=== PATIENT | male | born 1955 | race Caucasian/White ===

== ENCOUNTER → 2016-08-13 | Outpatient (CLI) | payer BC, OTHER ==
[2016-08-13 20:47] LABS: Hemoglobin A1C 8.8 % (4.2-6.1)
== END | disposition home or self-care (01) ==
LOC: MMGSC 09:43
PROVIDERS: ATTEND Family Medicine
DX: E11.9 Type 2 diabetes mellitus without complications (principal)
CPT/HCPCS: 83036

== ENCOUNTER → 2016-08-13 | Outpatient (CLI) | payer BC, OTHER | END | disposition home or self-care (01) | LOC: MMGSC 09:41 | PROVIDERS: ATTEND Internal Medicine Endocrinology, Diabetes & Metabolism | DX: E05.20 Thyrotoxicosis with toxic multinodular goiter without thyrotoxic crisis or storm (principal) | CPT/HCPCS: 36415; 84439; 84443; 84480 ==

== ENCOUNTER → 2016-09-21 | Outpatient (CLI) | payer BC | END | disposition home or self-care (01) | LOC: LABWHC1 12:51 | PROVIDERS: ATTEND Surgery Plastic and Reconstructive Surgery | DX: E05.90 Thyrotoxicosis, unspecified without thyrotoxic crisis or storm (principal) | CPT/HCPCS: 36415; 84439; 84481 ==

== ENCOUNTER 2016-09-22 07:43 | Observation (INO) | payer BC, OTHER ==
[2016-09-16 12:15] VITALS: BMI 29.1
[~2016-09-22 07:43] MED LIST: DEXAMETHASONE SOD PHOSPHATE 10 MG/ML 1 ML VIAL IV ONE; HEPARIN SODIUM,PORCINE 5,000 UNIT/ML 1 ML VIAL SQ ONE; HYDROmorphone 1 MG/ML 1 ML SYRINGE IVP PRN; LACTATED RINGERS 1,000 ML IV SCH; MIDAZOLAM 2 MG/2 ML VIAL IV PRN; ONDANSETRON 4 MG/2 ML VIAL IVP ONE; SCOPOLAMINE 1.5MG/72HR PATCH TRANSDERM ONE
[2016-09-22] MEDS ORDERED: HEPARIN SODIUM,PORCINE 5,000 UNIT/ML 1 ML VIAL SQ ONE (08:43)
[2016-09-22] MEDS ORDERED: LIDOCAINE 1% 20 ML VIAL (10MG/ML) FOR IV START INTRADERMA ONE (08:53)
[2016-09-22] MEDS ORDERED: INSULIN LISPRO (humaLOG) 300 UNIT/3 ML VIAL SQ ONE ×2 (09:11→13:31)
[2016-09-22] MEDS ORDERED: PHENYLEPHRINE-0.9% NACL SYG 1 MG/10 ML SYRINGE ONE (09:15)
[2016-09-22] MEDS ORDERED: fentaNYL (PF) 50 MCG/ML 2 ML AMP ONE (09:15)
[2016-09-22] MEDS ORDERED: PROPOFOL 10 MG/ML 20 ML VIAL IV ONE (09:15)
[2016-09-22] MEDS ORDERED: LIDOCAINE 2% SYG (PF) 100 MG/5 ML ONE (09:15)
[2016-09-22] MEDS ORDERED: SUCCINYLCHOLINE CHLORIDE 100 MG/5 ML SYR IV ONE (09:15)
[2016-09-22] MEDS ORDERED: MIDAZOLAM 2 MG/2 ML VIAL ONE (09:15)
[2016-09-22] MEDS ORDERED: ePHEDrine 50 MG/ML 1 ML AMP ONE (09:15)
[2016-09-22] MEDS ORDERED: SODIUM CHLORIDE 0.9% 50 ML with ceFAZolin 2,000 MG IV ONE ×2 (09:22)
[2016-09-22 09:23] LABS: Glucose,Whole Blood 207 mg/dL (75-99)
[2016-09-22] MEDS ORDERED: LACTATED RINGERS 1,000 ML IV ONE ×2 (12:17→12:49)
[2016-09-22] MEDS ORDERED: ONDANSETRON 4 MG/2 ML VIAL IVP PRN (13:15)
[2016-09-22] MEDS ORDERED: NALOXONE 0.4 MG/ML 1 ML VIAL IV PRN (13:15)
--- NOTE | 2016-09-22 13:15 | P.OP ---
Date of Procedure: 09/22/16 Preoperative Diagnosis: Hyperthyroidism Postoperative Diagnosis: Hyperthyroidism, very vascular thyroid gland Procedure(s) Performed: Right thyroid lobectomy, palpation of left lobe of thyroid, biopsy inferior pole parathyroid on the right with reimplantation into the strap muscles Anesthesia: DOC Surgeon: Lisa Guzman Sales Performance Analyst #1: Shawnee Hudson Estimated Blood Loss (ml): 250 IV fluids (ml): 2,000 Pathology: other (Right lobe of thyroid, parathyroid biopsy) Condition: stable Disposition: PACU Indications for Procedure: Hyperthyroidism Operative Findings: Extremely hypervascular thyroid gland Description of Procedure: The patient is a 61-year-old gentleman with hyperthyroidism who is noted to have bilateral thyroid nodules the largest being on the right. He has a history of atrial fibrillation and is presently on Elaquis and aspirin both of which she stopped 4 days ago. Additionally he has completed a course of Lugol' s iodine. He has been on methimazole and his T3 and T4 levels are not hyperthyroid at this time. The patient presented for possible subtotal thyroidectomy. After discussion it was determined that we will proceed with a right thyroid lobectomy and possible subtotal thyroidectomy depending on the intraoperative findings and intra- operative ability to carefully identify the recurrent laryngeal nerve and parathyroid glands. The patient and his understood this and the patient was taken to the operative suite. Following induction of general anesthesia the [facility] nerve stimulator probes were placed. A Rivera catheter was placed. The neck was prepped and draped in a sterile fashion. A collar incision was made and carried down through the skin and subcutaneous tissues and through the platysma. There were noted to be enlarged veins in the subcutaneous tissue at the onset of the case. The superior and inferior skin flaps were developed using the electrocautery device. Again very large veins were noted to be present running throughout the subcutaneous tissue. The strap muscles were then in the midline using the electrocautery device. The right lobe of the thyroid was firmly adherent underneath to the area of the strap muscles. It was somewhat difficult to differentiate the tissues of the thyroid from the interdigitating area of the strap muscles. The gland was identified and it also was noted to be hypervascular. There were very large vessels running onto the surface of the gland as well as the gland itself being hypervascular. It should be noted that any retraction on the gland resulted in bleeding from the substance of the gland itself as well as the multiple vessels encasing the gland. We were able to rotate the gland somewhat medially after dividing the strap muscles using the Harmonic scalpel. The firmly adherent surrounding tissues were carefully dissected free using sharp dissection. However, any attempt to dissect tissues from the thyroid resulted in bleeding from the surrounding tissues as well as the thyroid itself. We were able to identify the inferior pole vessels these were ligated and divided. In a similar fashion the superior pole vessels were able to be identified. These were ligated and divided. However again this was somewhat difficult secondary to the hypervascularity of the gland. Following this the lobe was rotated medially again any traction on the lobe seemed to result in bleeding both from the gland as well as the surrounding tissues. We were careful to rotate the gland medially and there was believed to be area of the inferior parathyroid was identified. This was firmly adherent to the gland and encased in some surrounding tissues which was dissected free however, a of sample of this was sent for frozen section biopsy to determine if this was indeed parathyroid or not. Frozen section was consistent with parathyroid. The remaining gland was preserved for implantation in the strap muscle at the termination of the case. Continued dissection on the gland revealed the area of the superior parathyroid however, the gland itself was not well seen. As the gland was rotated medially because the superior inferior pole had been freed we approach the area of the middle thyroid vein. A very vascular plexus was present in this area very adherent to the gland and careful dissection was performed to dissect this free and ligate these vessels. Dissection in the area of the recurrent laryngeal nerve revealed the nerve running deep. This was confirmed using the name nerve stimulator. This was also surrounded by numerous thin- walled vessels which were careful to avoid injuring. The lobe was able to be rotated up onto the trachea and the lobe was divided off at the area of the ligament of Chaney. Upon dividing the lobe at the ligament of Chaney several vessels protruding into this area were identified and necessitated suture ligation. Palpation of the contralateral lobe did not reveal any discrete dominant masses. The right lobe was the one which had the larger nodules and was the one of more concern. As preoperatively discussed with the patient depending on the difficulty of intraoperative dissection and concern for preservation of the recurrent laryngeal nerve and parathyroids it was felt that we would be best to to terminate the case without doing a completion thyroidectomy. There was some concern as to the area of the entrance of the recurrent laryngeal nerve into the cricothyroid membrane due to bleeding at the ligament of Chaney. Furthermore the superior parathyroid had not been well identified and the inferior parathyroid had been removed, although preserved for reimplantation. Upon removal of the right lobe of the thyroid a suture was placed for orientation. The specimen was sent to the pathologist. The wound was well irrigated. Gelfoam and thrombin were placed over the area of the ligament of Chaney. Pressure was applied. This was again well examined and no evidence of further bleeding was noted. A [place] drain was placed. Again consideration was made for doing a completion thyroidectomy however secondary to the hypervascularity of the gland and the questionable identity of the superior parathyroid gland it was determined that it would be safest to terminate the procedure at this point and await pathology. If this reveals a cancer related to the nodularity most likely a completion thyroidectomy will be necessary. For treatment of the hyperthyroidism the patient may opt to continue on his methmazole or consider radioactive iodine. Again the largest lobe, with the largest nodules has been removed and we will await pathology. The parathyroid gland was reimplanted in the right sternocleidomastoid muscle and marked with a silk suture. The strap muscles were closed in the midline using a 3-0 Vicryl suture. The platysma was closed using a 3-0 Vicryl suture. The skin was closed using a 4-0 Monocryl. The drain was secured with a nylon suture. The patient tolerated the procedure in stable condition. All instrument and sponge counts were correct at the end of the case.
[2016-09-22 13:35] LABS: Glucose,Whole Blood 281 mg/dL (75-99)
[2016-09-22] MEDS: HEPARIN SODIUM,PORCINE 5,000 UNIT/ML 1 ML VIAL SQ SCH ×2 (16:18→23:30)
[2016-09-22] MEDS: HYDROmorphone 1 MG/ML 1 ML SYRINGE IV PRN ×2 (16:19→23:30)
[2016-09-22] MEDS: DEXTROSE 5%-0.45% NACL 1,000 ML IV SCH ×2 (16:29→23:29)
[2016-09-22 16:42] LABS: Glucose,Whole Blood 243 mg/dL (75-99)
[2016-09-22] MEDS: GLIMEPIRIDE 1 MG TAB PO SCH (17:55)
[2016-09-22] MEDS: INSULIN LISPRO (humaLOG) 300 UNIT/3 ML VIAL SQ SCH ×3 (17:55→21:15)
[2016-09-22] MEDS: METOPROLOL TARTRATE 50 MG TAB PO SCH (21:13)
[2016-09-22] MEDS: METHIMAZOLE 5 MG TAB PO SCH (21:13)
[2016-09-22 21:31] LABS: Glucose,Whole Blood 281 mg/dL (75-99)
[2016-09-23] MEDS: HYDROmorphone 1 MG/ML 1 ML SYRINGE IV PRN ×2 (02:01→07:55)
[2016-09-23 07:27] LABS: Basophils % (A) 0 %; CH 31.6; CHCM 35.2; Eosinophils % (A) 0 %; HCT 35.6 % (39.0-53.0); HDW 2.97; HGB 12.2 gm/dL (13.0-17.5); Luc % (Auto) 3; Lymphocytes # (A) 1.6 k/uL (1.0-4.8); Lymphocytes % (A) 17 %; MCHC 34.3 g/dL (31.0-37.0); MCV 90.3 fL (80.0-100.0); Mean Platelet Volume 7.9; Monocytes # (A) 0.6 k/uL (0-1.0); Monocytes % (A) 7 %; Neutrophils # (A) 6.9 k/uL (1.3-7.7); Neutrophils % (A) 73 %; RBC 3.94 m/uL (4.30-5.90); RDW 13.3 % (11.5-15.5); WBC 9.4 k/uL (3.8-10.6); WBC (Perox) 9.98
[2016-09-23] MEDS: GLIMEPIRIDE 1 MG TAB PO SCH ×2 (07:49→17:12)
[2016-09-23] MEDS: INSULIN LISPRO (humaLOG) 300 UNIT/3 ML VIAL SQ SCH ×4 (07:49→20:36)
[2016-09-23] MEDS: HEPARIN SODIUM,PORCINE 5,000 UNIT/ML 1 ML VIAL SQ SCH ×3 (07:51→23:51)
[2016-09-23] MEDS: LISINOPRIL 2.5 MG TAB PO SCH ×2 (07:52→09:08)
[2016-09-23] MEDS: METOPROLOL TARTRATE 50 MG TAB PO SCH ×2 (07:53→20:35)
[2016-09-23] MEDS: PANTOPRAZOLE 40 MG/10 ML VIAL IV SCH (07:53)
[2016-09-23] MEDS: METHIMAZOLE 5 MG TAB PO SCH ×2 (07:53→20:35)
[2016-09-23 07:57] LABS: Glucose,Whole Blood 241 mg/dL (75-99)
[2016-09-23 11:08] LABS: Hemoglobin A1C 8.5 % (4.2-6.1)
[2016-09-23 11:20] LABS: Glucose,Whole Blood 290 mg/dL (75-99)
[2016-09-23] MEDS: HYDROcodone/APAP 5-325MG 1 EACH TAB PO PRN ×2 (11:31→17:10)
--- NOTE | 2016-09-23 12:34 | P.CNEND ---
History of Present Illness Consult date: 09/23/16 Requesting physician: Lisa Guzman History of present illness: 61-year-old male who underwent right thyroid lobectomy. Patient has history of multinodular goiter and hypothyroidism. Patient is doing well postoperatively. No history of hoarseness of voice. Patient denies any numbness tingling muscle cramps. 4 hyperthyroidism patient is taking methimazole 10 mg twice a day. Preoperatively patient had normal thyroid function tests. Patient also has history of type 2 diabetes. At home he takes metformin and glimepiride. Currently he is on sliding scale insulin and glimepiride 1 mg Blood sugars are between 200-300. Patient has good appetite and is able to eat his meals. Review of Systems Constitutional: Denies chills, Denies fever Eyes: denies blurred vision, denies pain Ears, nose, mouth and throat: Reports ant. neck pain Cardiovascular: Denies chest pain, Denies shortness of breath Respiratory: Denies cough Gastrointestinal: Denies abdominal pain, Denies diarrhea, Denies nausea, Denies vomiting Musculoskeletal: Denies myalgias Integumentary: Denies pruritus, Denies rash Neurological: Denies numbness, Denies weakness Endocrine: Denies fatigue, Denies weight change Past Medical History Past Medical History: Atrial Fibrillation, Coronary Artery Disease (CAD), Diabetes Mellitus Additional Past Medical History / Comment(s): gout, 2 years ago had afib and was cardioverted.16 pt came in with weakness, feeling tired. clinical impression afib, cardiac disease. History of Any Multi-Drug Resistant Organisms: None Reported Past Surgical History: Heart Catheterization Additional Past Surgical History / Comment(s): colonoscopy/polyps removed were benign, heart cath/angioplasy(blkg lad). had appy when he was in his 20's then 5 years ago had sx to go in and removed a suture that never dissolved and clean area out. Past Anesthesia/Blood Transfusion Reactions: No Reported Reaction Past Psychological History: No Psychological Hx Reported Additional Psychological History / Comment(s): pt lives at home with his , has 2 boys and 2 girls-all grown and off on own. 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 Smoking Status: Current every day smoker Past Alcohol Use History: None Reported Additional Past Alcohol Use History / Comment(s): pt started smoking at age 15, smokes 1/2 ppd. smoking cessation booklet given to p.t Past Drug Use History: None Reported - Past Family History Father Family Medical History: Myocardial Infarction ([place]) Additional Family Medical History / Comment(s): dad at age 55 from [place] Mother Family Medical History: Cancer Additional Family Medical History / Comment(s): from bladder cancer age 88 Sister(s) Family Medical History: No Reported History Brother(s) Family Medical History: No Reported History Daughter(s) Family Medical History: No Reported History Son(s) Family Medical History: No Reported History Medications and Allergies Home Medications Medication Instructions Recorded Confirmed Type Aspirin EC [Ecotrin Low Dose] 81 mg PO DAILY 09/16/15 09/23/16 History Methimazole [Tapazole] 10 mg PO BID 09/16/16 09/23/16 History Lisinopril [Zestril] 2.5 mg PO DAILY 09/22/16 09/23/16 History Lugol's Solution 3 drop PO TID 09/22/16 09/23/16 History Allergies Allergy/AdvReac Type Severity Reaction Status Date / Time No Known Allergies Allergy Verified 09/16/15 14:29 Physical Exam Vitals: Vital Signs Temp Pulse Pulse Resp BP Pulse Ox 09/23/16 08:00 96.0 F L 62 16 101/61 95 09/23/16 02:20 97.7 F 66 16 113/59 99 09/22/16 18:30 97.5 F L 76 17 119/73 95 09/22/16 16:00 71 97/55 09/22/16 15:45 72 118/71 09/22/16 15:30 74 115/66 09/22/16 15:15 73 111/61 09/22/16 15:00 73 110/64 09/22/16 14:45 74 110/64 09/22/16 14:30 78 107/64 09/22/16 14:15 74 126/64 09/22/16 14:00 97.6 F 77 16 130/70 92 L 09/22/16 13:15 73 18 120/57 98 09/22/16 13:00 75 16 140/75 97 09/22/16 12:58 75 18 141/71 92 L 09/22/16 12:39 97.8 F 82 20 137/68 95 Intake and Output 09/22/16 09/23/16 09/23/16 22:59 06:59 14:59 Intake Total 480 850 360 Balance 480 850 360 Intake: Intake, IV Titration 700 Amount Dextrose 5%-0.45% NaCl 1, 700 000 ml @ 100 mls/hr IV . Q10H GAGANDEEP Rx#:[id number] Oral 480 150 360 Other: Voiding Method Toilet Toilet # Voids 1 - Constitutional General appearance: no acute distress - EENT Eyes: EOMI - Neck Neck: no lymphadenopathy - Respiratory Respiratory: bilateral: CTA - Cardiovascular Heart sounds: normal: S1, S2 - Gastrointestinal General gastrointestinal: no organomegaly, soft, no tenderness - Neurologic Neurologic: CNII-XII intact - Musculoskeletal Musculoskeletal: gait normal - Psychiatric Psychiatric: A&O x's 3, intact judgment & insight Results - Labs Result Diagrams: 09/23/16 06:42 Abnormal Lab Results - Last 24 Hours (Table) 09/22/16 09/22/16 09/22/16 Range/Units 13:27 16:40 21:11 RBC (4.30-5.90) m/uL Hgb (13.0-17.5) gm/dL Hct (39.0-53.0) % POC Glucose (mg/dL) 281 H 243 H 281 H (75-99) mg/dL Hemoglobin A1c (4.2-6.1) % Calcium (8.4-10.2) mg/dL 09/23/16 09/23/16 09/23/16 Range/Units 06:42 06:42 06:42 RBC 3.94 L (4.30-5.90) m/uL Hgb 12.2 L (13.0-17.5) gm/dL Hct 35.6 L (39.0-53.0) % POC Glucose (mg/dL) (75-99) mg/dL Hemoglobin A1c 8.5 H (4.2-6.1) % Calcium 8.1 L (8.4-10.2) mg/dL 09/23/16 09/23/16 Range/Units 07:35 11:17 RBC (4.30-5.90) m/uL Hgb (13.0-17.5) gm/dL Hct (39.0-53.0) % POC Glucose (mg/dL) 241 H 290 H (75-99) mg/dL Hemoglobin A1c (4.2-6.1) % Calcium (8.4-10.2) mg/dL Diabetes panel 09/22/16 09/22/16 09/23/16 Range/Units 14:15 21:52 06:42 Hemoglobin A1c 8.5 H (4.2-6.1) % Calcium 8.6 8.7 (8.4-10.2) mg/dL 09/23/16 Range/Units 06:42 Hemoglobin A1c (4.2-6.1) % Calcium 8.1 L (8.4-10.2) mg/dL Calcium panel 09/22/16 09/22/16 09/23/16 Range/Units 14:15 21:52 06:42 Calcium 8.6 8.7 8.1 L (8.4-10.2) mg/dL Pituitary panel 09/22/16 09/22/16 09/23/16 Range/Units 14:15 21:52 06:42 Calcium 8.6 8.7 8.1 L (8.4-10.2) mg/dL Adrenal panel 09/22/16 09/22/16 09/23/16 Range/Units 14:15 21:52 06:42 Calcium 8.6 8.7 8.1 L (8.4-10.2) mg/dL Assessment and Plan (1) Multiple thyroid nodules Status: Acute (2) Hyperthyroidism Status: Acute (3) Type 2 diabetes mellitus Status: Acute Plan: 61year-old male who has multi-nodular goiter as well as hyperthyroidism. He status post right lobectomy. We'll follow-up on surgical pathology as an outpatient 4 hyperthyroidism continue methimazole upon discharge and during hospitalization Postoperatively serum calcium has been normal. For diabetes, inject 6 units of Lantus now and continue Humalog sliding scale Continue glimepiride Thank you for letting me participate in the patient's care will follow patient during hospitalization as well as outpatient Follow up in endocrinology in 2 weeks after discharge
[2016-09-23] MEDS ORDERED: INSULIN GLARGINE 100 UNIT/ML 10 ML VIAL SQ ONE (13:01)
[2016-09-23] MEDS ORDERED: NICOTINE POLACRILEX 2 MG GUM BUCCAL PRN (13:26)
--- NOTE | 2016-09-23 13:29 | P.CONS ---
History of Present Illness - Reason for Consult Consult date: 09/23/16 Medical management - History of Present Illness This is a 61-year-old pleasant gentleman patient of Dr. Rodas. He has known history of diabetes mellitus, CAD with prior LAD occlusion at age 37 [address] angi[address] by [address] MICHELLE Tinoco, atrial fibrillation. Patient also has history of hyperthyroidism and was found have bilateral thyroid nodules with largest being on the right. He completed a course of Lugol's iodine and has been on methimazole. Patient was brought in to [facility] and underwent a right thyroid lobectomy, palpation of left lobe of thyroid, biopsy inferior pole parathyroid on the right with reimplantation into the strap muscles. Patient did have blood loss of 250 mL. He has a Case drain in. He denies having any difficulty or pain with swallowing. He has been seen by Dr. Acosta, automatic pinsetter adjuster. Blood sugars have been elevated between 200 300. He is anticipating discharge home tomorrow. Review of Systems All systems: negative Constitutional: Denies chills, Denies fever Eyes: denies blurred vision, denies pain Ears, nose, mouth and throat: Denies headache, Denies sore throat Cardiovascular: Denies chest pain, Denies shortness of breath Respiratory: Denies cough Gastrointestinal: Denies abdominal pain, Denies diarrhea, Denies nausea, Denies vomiting Musculoskeletal: Denies myalgias Integumentary: Denies pruritus, Denies rash Neurological: Denies numbness, Denies weakness Psychiatric: Denies anxiety, Denies depression Endocrine: Denies fatigue, Denies weight change Past Medical History Past Medical History: Atrial Fibrillation, Coronary Artery Disease (CAD), Diabetes Mellitus Additional Past Medical History / Comment(s): gout, coronary artery disease with prior LAD occlusion at age 37 requiring angioplasty, atrial fibrillation History of Any Multi-Drug Resistant Organisms: None Reported Past Surgical History: Heart Catheterization Additional Past Surgical History / Comment(s): colonoscopy/polyps removed were benign, heart cath/angioplasy(blkg lad). had appy when he was in his 20's then 5 years ago had sx to go in and removed a suture that never dissolved and clean area out. Past Anesthesia/Blood Transfusion Reactions: No Reported Reaction Past Psychological History: No Psychological Hx Reported Additional Psychological History / Comment(s): pt lives at home with his , has 2 boys and 2 girls-all grown and off on own. 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 Smoking Status: Current every day smoker Past Alcohol Use History: None Reported Additional Past Alcohol Use History / Comment(s): pt started smoking at age 15, smokes 1/2 ppd. smoking cessation booklet given to charlette Past Drug Use History: None Reported - Past Family History Father Family Medical History: Myocardial Infarction ([place]) Additional Family Medical History / Comment(s): dad at age 55 from [place] Mother Family Medical History: Cancer Additional Family Medical History / Comment(s): from bladder cancer age 88 Sister(s) Family Medical History: No Reported History Brother(s) Family Medical History: No Reported History Daughter(s) Family Medical History: No Reported History Son(s) Family Medical History: No Reported History Medications and Allergies Home Medications Medication Instructions Recorded Confirmed Type Aspirin EC [Ecotrin Low Dose] 81 mg PO DAILY 09/16/15 09/23/16 History Methimazole [Tapazole] 10 mg PO BID 09/16/16 09/23/16 History Lisinopril [Zestril] 2.5 mg PO DAILY 09/22/16 09/23/16 History Lugol's Solution 3 drop PO TID 09/22/16 09/23/16 History Allergies Allergy/AdvReac Type Severity Reaction Status Date / Time No Known Allergies Allergy Verified 09/16/15 14:29 Physical Exam Vitals: Vital Signs Temp Pulse Pulse Resp BP Pulse Ox 09/23/16 08:00 96.0 F L 62 16 101/61 95 09/23/16 02:20 97.7 F 66 16 113/59 99 09/22/16 18:30 97.5 F L 76 17 119/73 95 09/22/16 16:00 71 97/55 09/22/16 15:45 72 118/71 09/22/16 15:30 74 115/66 09/22/16 15:15 73 111/61 09/22/16 15:00 73 110/64 09/22/16 14:45 74 110/64 09/22/16 14:30 78 107/64 09/22/16 14:15 74 126/64 09/22/16 14:00 97.6 F 77 16 130/70 92 L 09/22/16 13:15 73 18 120/57 98 09/22/16 13:00 75 16 140/75 97 09/22/16 12:58 75 18 141/71 92 L 09/22/16 12:39 97.8 F 82 20 137/68 95 Intake and Output 09/22/16 09/23/16 09/23/16 22:59 06:59 14:59 Intake Total 480 850 360 Balance 480 850 360 Intake: Intake, IV Titration 700 Amount Dextrose 5%-0.45% NaCl 1, 700 000 ml @ 100 mls/hr IV . Q10H GAGANDEEP Rx#:[id number] Oral 480 150 360 Other: Voiding Method Toilet Toilet # Voids 1 Gen: This is a 61-year-old male. He is sitting up in bed appears to be in no acute distress. HEENT: Head is atraumatic, normocephalic. Pupils equal, round. Sclerae is anicteric. NECK: Supple. No JVD. No lymphadenopathy. Dressing in place with small drain. LUNGS: Clear to auscultation. No wheezes or rhonchi. No intercostal retractions. HEART: Regular rate and rhythm. No murmur. ABDOMEN: Soft. Bowel sounds are present. No masses. No tenderness. EXTREMITIES: No pedal edema. No calf tenderness. NEUROLOGICAL: Patient is awake, alert and oriented x3. Cranial nerves 2 through 12 are grossly intact. Results CBC & Chem 7: 09/23/16 06:42 Labs: Abnormal Lab Results - Last 24 Hours (Table) 09/22/16 09/22/16 09/22/16 Range/Units 13:27 16:40 21:11 RBC (4.30-5.90) m/uL Hgb (13.0-17.5) gm/dL Hct (39.0-53.0) % POC Glucose (mg/dL) 281 H 243 H 281 H (75-99) mg/dL Hemoglobin A1c (4.2-6.1) % Calcium (8.4-10.2) mg/dL 09/23/16 09/23/16 09/23/16 Range/Units 06:42 06:42 06:42 RBC 3.94 L (4.30-5.90) m/uL Hgb 12.2 L (13.0-17.5) gm/dL Hct 35.6 L (39.0-53.0) % POC Glucose (mg/dL) (75-99) mg/dL Hemoglobin A1c 8.5 H (4.2-6.1) % Calcium 8.1 L (8.4-10.2) mg/dL 09/23/16 09/23/16 Range/Units 07:35 11:17 RBC (4.30-5.90) m/uL Hgb (13.0-17.5) gm/dL Hct (39.0-53.0) % POC Glucose (mg/dL) 241 H 290 H (75-99) mg/dL Hemoglobin A1c (4.2-6.1) % Calcium (8.4-10.2) mg/dL Assessment and Plan Plan: 1. Multinodular goiter and hyperthyroidism status post right lobectomy. Pathology report is pending. Patient is to continue methimazole on discharge per automatic pinsetter adjuster. 2. Hyperthyroidism. Continue methimazole. 3. Diabetes mellitus type 2. Continue glimepiride 1 mg twice daily, Humalog scale. Dr. Acosta has ordered long acting insulin. Continue lisinopril. 4. History of coronary artery disease status post angioplasty of the LAD, stable. Continue aspirin, Lipitor, Lopressor. 5. Atrial fibrillation. Continue eliquis and Lopressor. 6. Tobacco use and dependence. Patient requesting Nicorette gum. 7. DVT and GI prophylaxis. Discharge plan: Return home tomorrow. Impression and plan of care have been directed as dictated by the signing physician. Ramonita Malhotra nurse practitioner acting as scribe for signing physician. Cc: Dr. Cesar Time with Patient: Greater than 30
[2016-09-23] MEDS: DEXTROSE 5%-0.45% NACL 1,000 ML IV SCH (13:35)
--- NOTE | 2016-09-23 15:06 | P.PN ---
Subjective A 61-year-old male patient being seen on rounds this morning. Patient is postop done on September 22 right thyroid lobectomy palpatation of left lobe of the thyroid, biopsy inferior pole parathyroid on the right with reimplantation into the strap muscles done for hyperthyroidism the dressing to the surgical site moderate amount of drainage noted on dressing with a [place] drain in place. No hoarseness noted to the voice. Patient reports no difficulty in swallowing Patient has a history of hyperthyroidism with bilateral thyroid nodules . Additionally patient does have a history of atrial fibrillation on anticoagulation elquist and aspirin. These have been stopped for 4 days prior to the surgery. Also the patient had completed a course of lugol iodine . Additionally the patient had been treated with methimazole with preop thyroid levels normalizing . Is also noted that the patient has type 2 diabetes he been on metformin and glyburide at home. Blood sugars this morning are 280. Patient has been seen by transition assistant Dr. Acosta this morning recommendations reviewed noted and appreciated Objective - Vital Signs Vital signs: Vital Signs Temp 97.0 F L 09/23/16 14:21 Pulse 58 L 09/23/16 14:21 Resp 17 09/23/16 14:21 BP 103/55 09/23/16 14:21 Pulse Ox 94 L 09/23/16 14:21 Intake & Output 09/22/16 09/23/16 09/23/16 18:59 06:59 18:59 Intake Total 3030 850 840 Output Total 1250 Balance 1780 850 840 Intake: IV 2550 Intake, IV Titration 700 Amount Dextrose 5%-0.45% NaCl 1, 700 000 ml @ 100 mls/hr IV . Q10H [facility] Rx#:[id number] Oral 480 150 840 Output: Urine 1000 Estimated Blood Loss 250 Other: Voiding Method Toilet Toilet # Voids 1 - Exam GENERAL APPEARANCE: 61-year-old patient is alert, oriented, in no acute distress. Pleasant cooperative talkative no hoarseness noted to the Danial VITAL SIGNS: Reviewed HEENT: Head is normocephalic and atraumatic. Pupils are equal and reactive. The nares are patent. Oropharynx is clear without lesions. NECK: Supple without lymphadenopathy. Traches midline. Dressing dry at surgical site with a Case drain in place HEART: S1, S2. Regular rate and rhythm. Denying a murmur LUNGS: No crackles or wheezes are heard. On room air adequate air entry ABDOMEN: Soft, nontender, nondistended with good bowel sounds. No peritoneal signs. No palpable organomegaly or masses. EXTREMITIES: Normal skin color and turgor. No cyanosis, rash, ulceration, clubbing or edema. Radial pedal pulses are 2/4 bilaterally. NEUROLOGICAL: No focal deficits. Strength and sensation are grossly intact. - Labs CBC & Chem 7: 09/23/16 06:42 Labs: Abnormal Lab Results - Last 24 Hours (Table) 09/22/16 09/22/16 09/23/16 Range/Units 16:40 21:11 06:42 RBC 3.94 L (4.30-5.90) m/uL Hgb 12.2 L (13.0-17.5) gm/dL Hct 35.6 L (39.0-53.0) % POC Glucose (mg/dL) 243 H 281 H (75-99) mg/dL Hemoglobin A1c (4.2-6.1) % Calcium (8.4-10.2) mg/dL 09/23/16 09/23/16 09/23/16 Range/Units 06:42 06:42 07:35 RBC (4.30-5.90) m/uL Hgb (13.0-17.5) gm/dL Hct (39.0-53.0) % POC Glucose (mg/dL) 241 H (75-99) mg/dL Hemoglobin A1c 8.5 H (4.2-6.1) % Calcium 8.1 L (8.4-10.2) mg/dL 09/23/16 Range/Units 11:17 RBC (4.30-5.90) m/uL Hgb (13.0-17.5) gm/dL Hct (39.0-53.0) % POC Glucose (mg/dL) 290 H (75-99) mg/dL Hemoglobin A1c (4.2-6.1) % Calcium (8.4-10.2) mg/dL Assessment and Plan Plan: Impression History of hyperthyroidism Multinodular goiter with hyperthyroidism Type 2 diabetes uncontrolled hemoglobin A1c 8.5 Status post September 22 2016 Right thyroid lobectomy, palpation of left lobe of thyroid, biopsy inferior pole parathyroid on the right with reimplantation into the strap muscles Hyperthyroidism Perivascular thyroid gland History of atrial fibrillation on elquist stopped 4 days prior Plan Continue postop surgical care Continue recommendations by endocrinology 6 units of Lantus now and follow Humalog scale Continue glyburide Further recommendations pending will follow possible discharge in the next 24 hours Initiate diabetic education The above dictated assessment and findings were discussed with dr Milla Marley Impression and the plan of care have been dictated as directed. Crystal Rico nurse practitioner acting as a scribe for Dr. Taylor
[2016-09-23 16:34] LABS: Glucose,Whole Blood 149 mg/dL (75-99)
[2016-09-23 20:16] LABS: Glucose,Whole Blood 190 mg/dL (75-99)
[2016-09-24 01:24] VITALS: RESP 16
[2016-09-24] MEDS: HYDROcodone/APAP 5-325MG 1 EACH TAB PO PRN (04:59)
[2016-09-24 06:52] LABS: Glucose,Whole Blood 166 mg/dL (75-99)
[2016-09-24 07:26] VITALS: BP 109/62; PULSE 54; TEMP 97.9
[2016-09-24] MEDS: LISINOPRIL 2.5 MG TAB PO SCH (07:33)
[2016-09-24] MEDS: HEPARIN SODIUM,PORCINE 5,000 UNIT/ML 1 ML VIAL SQ SCH (07:33)
[2016-09-24] MEDS: METHIMAZOLE 5 MG TAB PO SCH (07:33)
[2016-09-24] MEDS: GLIMEPIRIDE 1 MG TAB PO SCH (07:33)
[2016-09-24] MEDS: METOPROLOL TARTRATE 50 MG TAB PO SCH (07:33)
[2016-09-24] MEDS: INSULIN LISPRO (humaLOG) 300 UNIT/3 ML VIAL SQ SCH (07:34)
[2016-09-24] MEDS: PANTOPRAZOLE 40 MG/10 ML VIAL IV SCH (07:34)
--- NOTE | 2016-09-24 09:07 | P.DS ---
Providers Date of admission: 09/23/16 03:54 Expected date of discharge: 09/24/16 Attending physician: Lsia Guzman Consults: 09/22/16 13:18 Consult Physician Routine Consulting Provider: Gus Roach Consult Reason/Comments: Medical management Do you want consulting provider notified?: Yes 09/22/16 13:19 Consult Physician Routine Consulting Provider: Yun Acosta Consult Reason/Comments: Patient known to you Do you want consulting provider notified?: Yes Primary care physician: [facility] Course: Patient is postop done on September 22 right thyroid lobectomy palpatation of left lobe of the thyroid, biopsy inferior pole parathyroid on the right with reimplantation into the strap muscles done for hyperthyroidism the dressing to the surgical site moderate amount of drainage noted on dressing with a Ramsay drain in place. No hoarseness noted to the voice. Patient reports no difficulty in swallowing Patient has a history of hyperthyroidism with bilateral thyroid nodules . Additionally patient does have a history of atrial fibrillation on anticoagulation elquist and aspirin. These have been stopped for 4 days prior to the surgery. Also the patient had completed a course of lugol iodine . Additionally the patient had been treated with methimazole with preop thyroid levels normalizing . Is also noted that the patient has type 2 diabetes he been on metformin and glyburide at home. Blood sugars this morning are 280. Patient has been seen by domestic maid Dr. Acosta recommendations reviewed noted and appreciated on September 24 Dr. Marley evaluated the patient felt the patient was hemodynamically stable and appropriate proceed with a discharge. Dr. Marley did remove the Case drain from the surgical site. Dry dressing was applied with post op instructions provided Impression History of hyperthyroidism Multinodular goiter with hyperthyroidism Type 2 diabetes uncontrolled hemoglobin A1c 8.5 Status post September 22 2016 Right thyroid lobectomy, palpation of left lobe of thyroid, biopsy inferior pole parathyroid on the right with reimplantation into the strap muscles Hyperthyroidism Perivascular thyroid gland History of atrial fibrillation on elquist stopped 4 days prior The above dictated assessment and findings were discussed with dr Milla Marley Impression and the plan of care have been dictated as directed. Crystal Rico nurse practitioner acting as a scribe for Dr. Taylor Plan - Discharge Summary New Discharge Prescriptions: HYDROcodone/APAP 5-325MG [Stratford 5-325] 1 each PO Q4HR PRN #30 tab PRN Reason: Moderate Pain Discharge Medication List Aspirin EC [Ecotrin Low Dose] 81 mg PO DAILY 09/16/15 [History] Apixaban [Eliquis] 5 mg PO BID #60 tab 09/18/15 [Rx] Atorvastatin [Lipitor] 40 mg PO HS #30 tab 09/18/15 [Rx] Glimepiride [Amaryl] 1 mg PO BID #60 tab 09/18/15 [Rx] Metoprolol Tartrate [Lopressor] 50 mg PO BID #120 tab 09/18/15 [Rx] Methimazole [Tapazole] 10 mg PO BID 09/16/16 [History] Lisinopril [Zestril] 2.5 mg PO DAILY 09/22/16 [History] HYDROcodone/APAP 5-325MG [Stratford 5-325] 1 each PO Q4HR PRN #30 tab 09/24/16 [Rx] Follow up Appointment(s)/Referral(s): Romy Cesar MD [Primary Care Provider] - 1 Week Lisa Guzman MD [STAFF PHYSICIAN] - 1 Week Yun Acosta MD [STAFF PHYSICIAN] - 1 Week Activity/Diet/Wound Care/Special Instructions: Start gwendolyndaphnie tomorrow on September 25 Discharge Disposition: HOME SELF-CARE
== END 2016-09-24 09:37 | disposition home or self-care (01) ==
LOC: OR 07:43 → 3SUR 12:39 → OR 09-23 03:54
PROVIDERS: ADMIT Surgery; ATTEND Surgery
DX: E05.00 Thyrotoxicosis with diffuse goiter without thyrotoxic crisis or storm (principal); I48.91 Unspecified atrial fibrillation; Z79.01 Long term (current) use of anticoagulants; E11.65 Type 2 diabetes mellitus with hyperglycemia; Z79.84 Long term (current) use of oral hypoglycemic drugs; Z79.82 Long term (current) use of aspirin; I25.10 Atherosclerotic heart disease of native coronary artery without angina pectoris; F17.200 Nicotine dependence, unspecified, uncomplicated
CPT/HCPCS: 88305; 82310 ×2; 83036; 85025; 88342; 88331; 88307; 88341; 60225; 60512; G0378 ×2; J2250; J1644 ×3; J1100; J2405; J2001; J3010; J1170 ×2; J0690; J2370; J0330; J2704; C9113 ×2; 96372; 96375; 96376

== ENCOUNTER → 2016-10-01 | Outpatient (CLI) | payer BC ==
[2016-10-01 19:58] LABS: Basophils # (A) 0.1 k/uL (0-0.2); Basophils % (A) 1 %; CH 31.2; CHCM 35.2; Eosinophils # (A) 0.1 k/uL (0-0.7); Eosinophils % (A) 1 %; HCT 43.4 % (39.0-53.0); HDW 2.91; HGB 14.7 gm/dL (13.0-17.5); Luc % (Auto) 3; Lymphocytes % (A) 23 %; MCH 30.2 pg (25.0-35.0); MCHC 33.8 g/dL (31.0-37.0); MCV 89.2 fL (80.0-100.0); Mean Platelet Volume 7.3; Monocytes # (A) 0.5 k/uL (0-1.0); Monocytes % (A) 6 %; Neutrophils % (A) 66 %; RBC 4.86 m/uL (4.30-5.90); RDW 13.7 % (11.5-15.5); WBC (Perox) 9.48
[2016-10-01 20:20] LABS: ALT 38 U/L (21-72); AST 19 U/L (17-59); Alkaline Phosphatase 87 U/L (38-126); Anion Gap 12 mmol/L; Blood Urea Nitrogen 13 mg/dL (9-20); Calcium 9.4 mg/dL (8.4-10.2); Carbon Dioxide 26 mmol/L (22-30); Chloride 102 mmol/L (98-107); Glucose 90 mg/dL (74-99); Non-African American GFR(MDRD) >60 (>60 ml/min/1.73 sqM); Potassium 5.2 mmol/L (3.5-5.1); Sodium 140 mmol/L (137-145); Total Bilirubin 0.6 mg/dL (0.2-1.3); Total Protein 7.4 g/dL (6.3-8.2)
== END | disposition home or self-care (01) ==
LOC: MMGSC 15:19
PROVIDERS: ATTEND Family Medicine
DX: T81.4XXA Infection following a procedure, initial encounter (principal)
CPT/HCPCS: 36415; 80053; 84439; 84443; 84480; 85025; 87070; 87075; 87205

== ENCOUNTER 2016-10-19 10:42 | Day surgery (SDC) | payer BC ==
[2016-10-14 10:39] VITALS: BMI 29.1
[~2016-10-19 10:42] MED LIST changes: +ALPRAZolam 0.25 MG TAB PO PRN; +ASPIRIN 325 MG TAB PO ONE; -DEXAMETHASONE SOD PHOSPHATE 10 MG/ML 1 ML VIAL IV ONE; -HEPARIN SODIUM,PORCINE 5,000 UNIT/ML 1 ML VIAL SQ ONE; -HYDROmorphone 1 MG/ML 1 ML SYRINGE IVP PRN; -LACTATED RINGERS 1,000 ML IV SCH; -MIDAZOLAM 2 MG/2 ML VIAL IV PRN; -ONDANSETRON 4 MG/2 ML VIAL IVP ONE; -SCOPOLAMINE 1.5MG/72HR PATCH TRANSDERM ONE; +SODIUM CHLORIDE 0.9% 1,000 ML in EMPTY BAG 1 BAG IV ONE
[2016-10-19 11:05] VITALS: RESP 18
[2016-10-19 11:05] LABS: Glucose,Whole Blood 154 mg/dL (75-99)
[2016-10-19] MEDS ORDERED: LIDOCAINE 2% INJ 20 MG/ML (20 ML MDV) ONE (12:49)
[2016-10-19] MEDS ORDERED: VERAPAMIL 2.5 MG/ML 2 ML AMP ONE (12:49)
[2016-10-19] MEDS ORDERED: SODIUM CHLORIDE 0.9% (PF) 10 ML VIAL ONE (12:50)
[2016-10-19] MEDS ORDERED: MIDAZOLAM 2 MG/2 ML VIAL ONE (12:52)
[2016-10-19] MEDS ORDERED: HEPARIN SODIUM 1,000 UNIT/ML VIAL ONE (12:52)
[2016-10-19] MEDS ORDERED: MIDAZOLAM 2 MG/2 ML VIAL IVP ONE (13:16)
[2016-10-19] MEDS ORDERED: LIDOCAINE 2% INJ 20 MG/ML SQ ONE ×2 (13:18)
[2016-10-19] MEDS ORDERED: VERAPAMIL SYRINGE (5 MG/10 ML) INTRAARTER ONE ×2 (13:19→13:31)
[2016-10-19] MEDS ORDERED: HEPARIN SODIUM 1,000 UNIT/ML VIAL IV ONE (13:21)
[2016-10-19] MEDS ORDERED: IOHEXOL 350 MG/ML 100 ML BOTTLE INJ ONE (13:33)
[2016-10-19] MEDS ORDERED: RX INFO: IV CONTRAST WAS GIVEN 1 EACH MISC MISCELLANE PRN (13:35)
[2016-10-19] MEDS ORDERED: SODIUM CHLORIDE 0.9% 1,000 ML IV SCH (13:45)
[2016-10-19 14:49] VITALS: TEMP 98.2
[2016-10-19 15:54] VITALS: PULSE 66
[2016-10-19 17:37] VITALS: BP 134/76
--- NOTE | 2016-10-20 10:31 | CC ---
DATE OF SERVICE: 10/19/2016 PERFORMING PHYSICIAN: Mitch Cross, Print Project Manager. PROCEDURE PERFORMED: Selective right and left coronary angiogram. INDICATION: This is a pleasant 61-year-old gentleman who underwent a stress test recently in the office, showed distal lateral wall ischemia. He was brought today to undergo a heart catheterization and rule out severe underlying coronary artery disease. APPROACH: Right radial artery. COMPLICATIONS: None. LEVEL OF SEDATION: Moderate. PROCEDURE DESCRIPTION: After obtaining an informed consent, the patient was brought to the Cardiac Production Reproduction Manager. The right radial artery was accessed using micropuncture technique. The micropuncture wire passed easily, then I placed 6 Maori sheath in the right radial artery. Subsequently, I gave the patient 2 mg of verapamil IA and 3000 units of heparin IV. Then I did selective right and left coronary angiogram using JR4 and JL3.5 catheters. The procedure was completed without any complication. CORONARY ANGIOGRAM: 1. The right coronary artery is a large-caliber vessel and it is a dominant vessel. The proximal RCA appeared to be angiographically normally. The mid RCA has mild disease only. The RCA distally just before the bifurcation to PDA and PLV branch has disease, appears to be in the range of 50%. The PDA and PLV branches are angiographically normal. 2. The left main is a short left main and almost nonexistent. It bifurcates into the left circumflex and left anterior descending artery. 3. Left circumflex is a large-caliber vessel and it is a nondominant vessel. The proximal left circumflex appears to be angiographically normally. The mid left circumflex gives rise into a large OM branch, which appeared to be angiographically normal. The left circumflex after that is subtotally occluded, but becomes small to medium caliber vessel. 4. The left anterior descending artery. The proximal left anterior descending artery appeared to have disease in the range of 40% to 50%. The mid LAD has mild disease only. The LAD distally appeared to be angiographically normal. The LAD gives rises into the multiple small diagonal branches. CONCLUSION: 1. Intermediate disease involving the distal right coronary artery. 2. Intermediate disease involving the ostial left anterior descending artery. 3. Subtotally occluded small mid-left circumflex after the bifurcation of a large OM branch. POSTPROCEDURE MANAGEMENT: 1. Maximize medical treatment. 2. Follow up with the patient.
== END 2016-10-19 18:37 | disposition home or self-care (01) ==
LOC: CATHCVL 10:42
PROVIDERS: ATTEND Internal Medicine Interventional Cardiology
DX: I25.10 Atherosclerotic heart disease of native coronary artery without angina pectoris (principal); I42.9 Cardiomyopathy, unspecified; I10 Essential (primary) hypertension; E78.00 Pure hypercholesterolemia, unspecified; E11.9 Type 2 diabetes mellitus without complications; Z79.84 Long term (current) use of oral hypoglycemic drugs; F17.210 Nicotine dependence, cigarettes, uncomplicated; E78.5 Hyperlipidemia, unspecified; Z79.01 Long term (current) use of anticoagulants; Z79.82 Long term (current) use of aspirin; Z79.899 Other long term (current) drug therapy
CPT/HCPCS: 99152; 93454; C1894; J2001; J2250; Q9967; J1644

== ENCOUNTER → 2017-02-01 | Outpatient (CLI) | payer BC | END | disposition home or self-care (01) | LOC: LABWHC1 10:47 | PROVIDERS: ATTEND Internal Medicine Endocrinology, Diabetes & Metabolism | DX: E05.90 Thyrotoxicosis, unspecified without thyrotoxic crisis or storm (principal) | CPT/HCPCS: 36415; 84439; 84443 ==

== ENCOUNTER → 2017-09-30 | Outpatient (CLI) | payer BC ==
[2017-09-30 19:30] LABS: T4, Free (Free Thyroxine) 1.14 ng/dL (0.78-2.19)
== END | disposition home or self-care (01) ==
LOC: MMGSC 12:19
PROVIDERS: ATTEND Internal Medicine Endocrinology, Diabetes & Metabolism
DX: E05.90 Thyrotoxicosis, unspecified without thyrotoxic crisis or storm (principal)
CPT/HCPCS: 36415; 84439; 84443

== ENCOUNTER → 2018-05-18 | Outpatient (CLI) | payer BC ==
[2018-05-18 17:20] LABS: T4, Free (Free Thyroxine) 1.14 ng/dL (0.78-2.19)
== END | disposition home or self-care (01) ==
LOC: LABWHC1 16:05
PROVIDERS: ATTEND Internal Medicine Endocrinology, Diabetes & Metabolism
DX: E05.90 Thyrotoxicosis, unspecified without thyrotoxic crisis or storm (principal)
CPT/HCPCS: 36415; 84439; 84443

== ENCOUNTER → 2018-05-20 | Outpatient (CLI) | payer BC ==
--- NOTE | 2018-05-20 18:17 | US ---
EXAMINATION TYPE: US thyroid st tissue head/neck DATE OF EXAM: 05/20/2018 COMPARISON: US and NM 09/17/2015 CLINICAL HISTORY: E05.90 Thyrotoxicosis. F/U, pt had right thyroid gland removed since previous exam GLAND SIZE: Right Lobe: Surgically absent Left Lobe: 5.8 x 1.9 x 2.0 cm Overall Parenchyma: heterogeneous Isthmus Thickness: 0.3 cm NODULES LEFT: # of nodules measured on left: 3 1. 1.3 X 1.1 x 1.1 cm hypoechoic solid nodule at the mid pole with well-defined margins; This nodul e is taller than wide and shows intranodular vascularity. Prior size: 1.4 x 1.3 x 1.1 cm 2. 1.1 X 0.8 x 1.0 cm hypoechoic solid nodule at the lower pole with well-defined margins; This nod ule is wider than tall and shows intranodular vascularity. Prior size: 1.2 x 0.8 x 1.0 cm 3. 1.1 X 0.5 x 0.9 cm isoechoic solid nodule at the lower pole with well-defined margins; This nodul e is wider than tall and shows intranodular vascularity. Prior size: 1.3 x 0.6 x 0.9 cm Bilateral neck scanned, no evidence of lymphadenopathy. Right lobe surgically absent, calcifications present within right thyroid bed, largest= 0.8 x 0.3 x 0.9 cm/ Left thyroid heterogeneous with stable nodules measured, all other nodules sub-centimeter in size. IMPRESSION: Calcification at the site of right thyroid lobectomy. No adverse change compared to old exam. Numerou s left side thyroid nodules consistent with multinodular goiter.
== END | disposition home or self-care (01) ==
LOC: RADUSMAIN 17:34
PROVIDERS: ATTEND Internal Medicine Endocrinology, Diabetes & Metabolism
DX: E05.20 Thyrotoxicosis with toxic multinodular goiter without thyrotoxic crisis or storm (principal)
CPT/HCPCS: 76536

== ENCOUNTER → 2018-11-23 | Outpatient (CLI) | payer BC ==
[2018-11-23 16:33] LABS: Albumin 4.3 g/dL (3.80-4.90); Albumin/Globulin Ratio 2.53 (1.60-3.17); Anion Gap 6.6 mmol/L (4.00-12.00); Calcium 8.9 mg/dL (8.7-10.3); Carbon Dioxide 27.4 mmol/L (21.6-31.8); Globulin 1.7 g/dL (1.6-3.3); LDL Cholesterol,Calculated 117.6 mg/dL (0.0-131.0); Potassium 4.6 mmol/L (3.5-5.5); Total Bilirubin 0.4 mg/dL (0.2-1.2); VLDL Calculation 19.4 mg/dL (5.00-40.00)
[2018-11-23 16:40] LABS: T4, Free (Free Thyroxine) 1.2 ng/dL (0.80-1.80)
[2018-11-23 20:40] LABS: Hemoglobin A1C 12.3 % (4.0-6.0)
== END | disposition home or self-care (01) ==
LOC: LABWHC1 07:29
PROVIDERS: ATTEND Internal Medicine Endocrinology, Diabetes & Metabolism
DX: E11.65 Type 2 diabetes mellitus with hyperglycemia (principal); E04.2 Nontoxic multinodular goiter
CPT/HCPCS: 36415; 80053; 80061; 82043; 82570; 83036; 84439; 84443

== ENCOUNTER → 2019-04-14 | Outpatient (CLI) | payer BC ==
[2019-04-14 23:24] LABS: African American GFR (CKD) 74.7 (60.0-200.0); Albumin 4.2 g/dL (3.80-4.90); Albumin/Globulin Ratio 2.33 (1.60-3.17); Anion Gap 7.1 mmol/L (4.00-12.00); BUN/Creat Ratio 12.5 Ratio (12.00-20.00); Calcium 8.8 mg/dL (8.7-10.3); Carbon Dioxide 26.9 mmol/L (21.6-31.8); Chol/HDL Ratio 4.09; Globulin 1.8 g/dL (1.6-3.3); LDL Cholesterol,Calculated 125.2 mg/dL (0.0-131.0); Non-African American GFR(CKD) 64.4 (60.0-200.0); Potassium 4.1 mmol/L (3.5-5.5); Total Bilirubin 0.7 mg/dL (0.3-1.2); VLDL Calculation 13.8 mg/dL (5.00-40.00)
[2019-04-14 23:32] LABS: T4, Free (Free Thyroxine) 1.2 ng/dL (0.80-1.80)
[2019-04-14 23:50] LABS: Urine Creatinine 168.2 mg/dL
[2019-04-15 00:09] LABS: Hemoglobin A1C 11.6 % (4.0-6.0)
== END | disposition home or self-care (01) ==
LOC: LABWHC1 17:09
PROVIDERS: ATTEND Internal Medicine Endocrinology, Diabetes & Metabolism
DX: E04.2 Nontoxic multinodular goiter (principal); E11.65 Type 2 diabetes mellitus with hyperglycemia
CPT/HCPCS: 36415; 80053; 80061; 82043; 82570; 83036; 84439; 84443

== ENCOUNTER 2019-11-02 17:15 | Inpatient (IN) | payer BC ==
[2019-11-02] MEDS ORDERED: MORPHINE SULFATE 4 MG/ML SYRINGE IV PRN (17:38)
[2019-11-02] MEDS ORDERED: HEPARIN SODIUM,PORCINE 5,000 UNIT/ML 1 ML VIAL IV PRN (17:38)
[2019-11-02] MEDS ORDERED: NITROGLYCERIN SL TABS 0.4 MG TAB SUBLINGUAL PRN ×2 (17:38→19:07)
[2019-11-02] MEDS ORDERED: ASPIRIN 81 MG PO STA (17:38)
[2019-11-02] MEDS ORDERED: SODIUM CHLORIDE 0.9% 1,000 ML IV STA (17:38)
[2019-11-02] MEDS ORDERED: HEPARIN SODIUM,PORCINE 5,000 UNIT/ML 1 ML VIAL IV ONE (17:38)
[2019-11-02] MEDS ORDERED: LABETALOL 5 MG/ML VIAL MDV IVP STA (17:41)
[2019-11-02 17:45] LABS: Basophils # (A) 0.1 k/uL (0-0.2); Basophils % (A) 1 %; Eosinophils # (A) 0.1 k/uL (0-0.7); Eosinophils % (A) 1 %; HGB 16.4 gm/dL (13.0-17.5); Lymphocytes # (A) 1.9 k/uL (1.0-4.8); Lymphocytes % (A) 14 %; MCH 30.9 pg (25.0-35.0); MCV 88.4 fL (80.0-100.0); Mean Platelet Volume 8.3; Monocytes # (A) 0.6 k/uL (0-1.0); Monocytes % (A) 5 %; Neutrophils # (A) 10.4 k/uL (1.3-7.7); Neutrophils % (A) 78 %; Platelet Count 236 k/uL (150-450); RBC 5.31 m/uL (4.30-5.90); RDW 12.3 % (11.5-15.5); WBC 13.4 k/uL (3.8-10.6)
[2019-11-02] MEDS ORDERED: HEPARIN SOD,PORK IN 0.45% NACL 25,000 UNIT in 0.45% NACL 1 250ML.BAG IV SCH (17:45)
--- NOTE | 2019-11-02 17:47 | ED ---
Chest Pain HPI - General Chief Complaint: Chest Pain Stated Complaint: chest pain Time Seen by Provider: 11/02/19 17:27 Source: patient, RN notes reviewed, old records reviewed Limitations: no limitations - History of Present Illness Initial Comments: This is a 64-year-old male DF for evaluation of chest pain 2 hours prior to arrival today. Patient is stabbing burning chest pain which it was related to reflux but it did not go away. Patient has history of angioplastystents, diabetes smoker with no significant family history of heart disease. Patient nursing travel history sick contacts no fever cough or congestion is otherwise been feeling well until this afternoon. Patient presents with his who drove him to the hospital tonight. Patient denying shortness of breath and diaphoresis still having chest pain is substernal minimal heaviness MD Complaint: chest pain -: hour(s) (2) Pain Location: substernal Pain Radiation: none Severity: mild Severity scale (1-10): 3 Quality: tightness Consistency: constant Improves With: nothing Worsens With: nothing Context: other (none) Anginal Symptoms: other (none) Other Symptoms: other (none) Treatments Prior to Arrival: none - Related Data Home Medications Medication Instructions Recorded Confirmed metFORMIN HCL 1,000 mg PO BID 11/02/19 11/02/19 Allergies Allergy/AdvReac Type Severity Reaction Status Date / Time No Known Allergies Allergy Verified 11/02/19 17:58 Review of Systems ROS Statement: Those systems with pertinent positive or pertinent negative responses have been documented in the HPI. ROS Other: All systems not noted in ROS Statement are negative. EKG Findings - EKG Comments: EKG Findings:: EKG shows evidence of ST elevated AR inferiorly with a rate of 84, VA 212, QRS 114, QTc 453 Past Medical History Past Medical History: Atrial Fibrillation, Coronary Artery Disease (CAD), Diabetes Mellitus, Thyroid Disorder Additional Past Medical History / Comment(s): gout, coronary artery disease with prior LAD occlusion at age 37 requiring angioplasty, History of Any Multi-Drug Resistant Organisms: None Reported Past Surgical History: Appendectomy, Heart Catheterization, Heart Catheterization With Stent Additional Past Surgical History / Comment(s): colonoscopy/polyps removed were benign, heart cath/angioplasy(blkg lad). had appy when he was in his 20's then 5 years ago had sx to go in and removed a suture that never dissolved and clean area out. 09/23/16-RT THYROID LOBECTOMY AND PARATHYROID BX Past Anesthesia/Blood Transfusion Reactions: No Reported Reaction Date of Last Stent Placement:: AGE 37 Past Psychological History: No Psychological Hx Reported Smoking Status: Current every day smoker Past Alcohol Use History: None Reported Past Drug Use History: None Reported - Past Family History Father Family Medical History: Myocardial Infarction (AR) Additional Family Medical History / Comment(s): dad at age 55 from [place] Mother Family Medical History: Cancer Additional Family Medical History / Comment(s): from bladder cancer age 88 Sister(s) Family Medical History: No Reported History Brother(s) Family Medical History: No Reported History Daughter(s) Family Medical History: No Reported History Son(s) Family Medical History: No Reported History General Exam Limitations: no limitations General appearance: alert, in no apparent distress, anxious Head exam: Present: atraumatic, normocephalic, normal inspection Eye exam: Present: normal appearance, PERRL, EOMI. Absent: scleral icterus, conjunctival injection, periorbital swelling ENT exam: Present: normal exam, mucous membranes moist Neck exam: Present: normal inspection. Absent: tenderness, meningismus, lymphadenopathy Respiratory exam: Present: normal lung sounds bilaterally. Absent: respiratory distress, wheezes, rales, rhonchi, stridor Cardiovascular Exam: Present: regular rate, normal rhythm, normal heart sounds. Absent: systolic murmur, diastolic murmur, rubs, gallop, clicks GI/Abdominal exam: Present: soft, normal bowel sounds. Absent: distended, tenderness, guarding, rebound, rigid Extremities exam: Present: normal inspection, full ROM, normal capillary refill. Absent: tenderness, pedal edema, joint swelling, calf tenderness Back exam: Present: normal inspection Neurological exam: Present: alert, oriented X3, CN II-XII intact Psychiatric exam: Present: normal affect, normal mood Skin exam: Present: warm, dry, intact, normal color. Absent: rash Course Vital Signs 11/02/19 11/02/19 11/02/19 17:19 17:35 17:45 Temperature 97.6 F Pulse Rate 82 80 Respiratory 20 18 Rate Blood Pressure 189/95 185/97 185/97 O2 Sat by Pulse 99 100 Oximetry 04/02/20 18:02 Temperature Pulse Rate 77 Respiratory 18 Rate Blood Pressure 160/95 O2 Sat by Pulse 99 Oximetry - Reevaluation(s) Reevaluation #1: 11/02/19 18:25 medical records reviewed Reevaluation #2: 11/02/19 18:25 Patient is improved blood pressure controlsignificant current pain Reevaluation #3: 11/02/19 18:26 Studies Chest x-ray is negative for acute disease - Consultations Consultation #1: spoke w cardiology environmental law professor physician, Dr. Lee will take patient to the [facility] Lab and sound Dr. Toussaint is aware of admission Chest Pain MDM - MDM 64 male who presented with acute chest pain chart prior to arrival history of angioplasty diabetes and smoker blood pressure elevated here improve with treatment, patient's in no acute distress minimal chest pain no diaphoresis or shortness of breath EKG is positive for ST elevated AR patient to be admitted and anticoagulation took aspirin prior to arrival. Patient going to the Video Games Mechanic Critical Care Time Critical Care Time: Yes Total Critical Care Time: 31 Disposition Clinical Impression: A-fib, Type 2 diabetes mellitus, Cardiac disease, ST elevation myocardial infarction (STEMI) Disposition: ADMITTED IP TO THIS HOSP Condition: Serious Is patient prescribed a controlled substance at d/c from ED?: No
--- NOTE | 2019-11-02 17:51 | XR ---
EXAMINATION TYPE: XR chest 1V portable DATE OF EXAM: 11/02/2019 HISTORY: Shortness of breath. COMPARISON: 09/16/2015 TECHNIQUE: Single view of the chest is submitted. FINDINGS: Demonstrated are scattered senescent parenchymal change. There is no evidence for focal infiltrate. The heart is stable. Hilar and mediastinal structures are within normal limits. Degenerative changes are seen of the dorsal spine. IMPRESSION: 1. Chronic changes without evidence for acute pulmonary disease.
[2019-11-02 17:53] LABS: INR 0.9 (<1.2); Partial Thromboplastin Time 24.9 sec (22.0-30.0); Prothrombin Time 9.4 sec (9.0-12.0)
[2019-11-02 17:54] LABS: ALT 21 U/L (4-49); AST 23 U/L (17-59); African American GFR (CKD) >90 (>60 ml/min/1.73 sqM); Albumin 4.5 g/dL (3.5-5.0); Alkaline Phosphatase 99 U/L (38-126); Anion Gap 10 mmol/L; Blood Urea Nitrogen 16 mg/dL (9-20); Calcium 9.6 mg/dL (8.4-10.2); Carbon Dioxide 25 mmol/L (22-30); Chloride 100 mmol/L (98-107); Glucose 348 mg/dL (74-99); Non-African American GFR(CKD) 85 (>60 ml/min/1.73 sqM); Potassium 4.1 mmol/L (3.5-5.1); Sodium 135 mmol/L (137-145); Total Bilirubin 0.5 mg/dL (0.2-1.3); Total Protein 7.2 g/dL (6.3-8.2)
[2019-11-02] MEDS ORDERED: LABETALOL SYRINGE 5 MG/ML IV ONE (18:00)
[2019-11-02] MEDS ORDERED: IV FLUID CONTINUATION 1,000 ML IV ONE ×2 (18:08)
[2019-11-02] MEDS ORDERED: LIDOCAINE 1% INJ 10MG/ML (20 ML MDV) ONE (18:17)
[2019-11-02] MEDS ORDERED: VERAPAMIL 2.5 MG/ML 2 ML AMP ONE (18:17)
[2019-11-02] MEDS ORDERED: MIDAZOLAM 2 MG/2 ML VIAL IVP ONE (18:24)
[2019-11-02] MEDS ORDERED: LIDOCAINE 1% INJ 10MG/ML (20 ML MDV) SQ ONE (18:26)
[2019-11-02] MEDS ORDERED: hydrALAZINE HCL 20 MG/ML 1 ML VIAL ONE (18:27)
[2019-11-02] MEDS ORDERED: hydrALAZINE HCL 20 MG/ML 1 ML VIAL IVP ONE (18:28)
[2019-11-02 18:29] LABS: Troponin I 0.043 ng/mL (0.000-0.034)
[2019-11-02] MEDS ORDERED: BIVALIRUDIN BOLUS 250 MG/50 ML IV ONE (18:33)
[2019-11-02] MEDS ORDERED: PRASUGREL 10 MG TAB ONE (18:33)
[2019-11-02] MEDS ORDERED: BIVALIRUDIN 250 MG in SODIUM CHLORIDE 0.9% 50 ML IV ONE (18:34)
[2019-11-02] MEDS ORDERED: NITROGLYCERIN 1000MCG/10ML SYRINGE INTRACORON ONE (18:42)
[2019-11-02] MEDS: NITROGLYCERIN 1000MCG/10ML SYRINGE INTRACORON ONE ×2 (18:42→18:48)
[2019-11-02] MEDS ORDERED: MORPHINE SULFATE 4 MG/ML SYRINGE ONE (18:43)
[2019-11-02] MEDS ORDERED: HYDROmorphone 1 MG/ML 1 ML SYRINGE ONE (18:43)
[2019-11-02] MEDS ORDERED: MORPHINE SULFATE 4 MG/ML SYRINGE IVP ONE (18:44)
[2019-11-02] MEDS ORDERED: FUROSEMIDE 10 MG/ML 4 ML VIAL ONE (18:45)
[2019-11-02] MEDS ORDERED: FUROSEMIDE 10 MG/ML 4 ML VIAL IVP ONE (18:46)
[2019-11-02] MEDS ORDERED: niCARdipine Syringe (1,000 mcg/10 mL) INTRACORON ONE (18:48)
[2019-11-02] MEDS ORDERED: PRASUGREL 10 MG TAB PO ONE (18:55)
[2019-11-02] MEDS ORDERED: IOPAMIDOL-370 125ML BTL INJ ONE (19:02)
[2019-11-02] MEDS ORDERED: ATROPINE SULFATE 0.1 MG/ML 10ML SYRINGE IV PRN (19:07)
[2019-11-02] MEDS ORDERED: ZOLPIDEM 5 MG TAB PO PRN (19:07)
[2019-11-02] MEDS ORDERED: RX INFO: IV CONTRAST WAS GIVEN 1 EACH MISC MISCELLANE PRN (19:07)
[2019-11-02] MEDS ORDERED: MAG HYDROX/AL HYDROX/SIMETH 30 ML CUP PO PRN (19:07)
[2019-11-02] MEDS ORDERED: SODIUM CHLORIDE 0.9% 1,000 ML IV SCH (19:15)
--- NOTE | 2019-11-02 19:24 | P.PCN ---
Date of Procedure: 11/02/19 Operative Findings: CARDIAC CATHETERIZATION AND PERCUTANEOUS CORONARY INTERVENTION PERFORMING PHYSICIAN: Mitch Arellano MD, RPVI PROCEDURE PERFORMED: 1. Selective right and left coronary angiogram 2. Left heart catheterization 3. Successful stenting of the distal RCA using 3.0 x 18 mm Xience KAUSHIK with an excellent angiographic results and reduction of stenosis from 100% to 0% INDICATION: This is a very pleasant 64-year-old gentleman with coronary artery disease and prior angioplasty of the LAD as well as hypertension and dyslipidemia presented to the emergency room complaining of chest discomfort and was found to have an acute inferior ST patient myocardial infarction. Because of that an emergent heart catheterization was advised COMPLICATION: None APPROACH: Right common femoral artery LEVEL OF SEDATION: Moderate with sedation length of 40 minutes DOOR TO BALLOON; 53 minutes PROCEDURE DESCRIPTION: After obtaining an informed consent, the patient was brought to cardiac lab coordinator. Local anesthesia was performed using lidocaine subcutaneously. The right common femoral artery was cannulated using Seldinger technique, the guidewire passed easily, following that we advanced a 6 Azerbaijani sheath dilator assembly, the wire and dilator were removed and sheath was flushed. Selective right and left coronary angiogram using a 6-Azerbaijani JR4 and JL catheters. Subsequently I did intervene on the RCA please see a separate paragraph. Following that we did left heart catheterization using 6-Azerbaijani pigtail catheter. The procedure was completed there was no complication. SELECTIVE CORONARY ANGIOGRAM: The right coronary artery: Is a large caliber vessel and a dominant vessel. The proximal RCA appears to have mild disease only. The mid RCA also has mild disease only. The RCA distally is 100% occluded. Left main: Is angiographically normal and short left main. Bifurcates into LCx and LAD The left circumflex: Is a large caliber vessel and nondominant vessel. The proximal LCx has mild disease only and gives rises into a large OM branch which appeared to have mild disease only. The LCx after that OM is subtotally occluded but becomes small caliber vessel. The left anterior descending artery: Is a large caliber vessel. The proximal LAD appeared to be stented with mild in-stent restenosis. The mid LAD by the bifurcation of the second and third diagonal branch appears to have a tubular lesion appears to be in the range of 60-70%. The LAD distally is diffusely disease up to about 50%. The LAD gives rises into a total of 4 diagonal branches. The first diagonal branch appeared to have mild disease only. The second diagonal branch is a small caliber vessel with severe ostial disease. The third and fourth diagonal branch appears to be angiographically normal. PCI OF THE RCA: Anticoagulation was initiated using Angiomax. Subsequently I did engage the RCA using JR4 guide. I did across the lesion using a short whisper wire. I attempted doing an aspiration thrombectomy but the stent won't turn around the mid RCA and because of that I did put out. I did balloon angioplasty using 2.5 x 12 millimeters balloon were the balloon was inflated under 12 bandar for 20 seconds. After that I was able to restore flow in the RCA by angiogram. Subsequently I did give the patient intracoronary nicardipine as well as nitroglycerin. I did deploy 3.0 x 18 mm Xience KAUSHIK where the stent was positioned under fluoroscopy guidance and deployed under 14 bandar for 20 seconds. I did postdilated the stent using 3.25 mm x 15 mm NC balloon. The balloon was inflated under 18 bandar. The following angiogram showed an excellent angiographic results with TEOFILO-3 flow. The procedure was completed without any complication HEMODYNAMICS: The LVEDP was 22 mmHg. No significant gradient was identified across aortic valve CONCLUSION: 1. Acute inferior ST elevation myocardial infarction 2. Acute total occlusion of the distal RCA. I did perform successful angioplasty and stenting of the RCA with excellent angiographic results 3. Subtotally occluded proximal small LCx after the bifurcation of large OM. 4. Intermediate to severe disease involving the mid LAD and intermediate disease involving the distal LAD 5. Elevated LVEDP POSTPROCEDURE MANAGEMENT: 1. Dual antiplatelet therapy along with high intensity statin along with anti- ischemic medications 2. Consider medical treatment for the LAD lesion at this point and probably assess for ischemia as an outpatient 3. Standard the groin care 4. ICU admission 5. Follow-up with the patient
[2019-11-02 19:39] LABS: Glucose,Whole Blood 310 mg/dL (75-99)
[2019-11-02] MEDS ORDERED: METOPROLOL TARTRATE 25 MG TAB PO SCH (21:00)
[2019-11-02 21:02] LABS: Glucose,Whole Blood 353 mg/dL (75-99)
[2019-11-02] MEDS: INSULIN ASPART (NovoLOG) 100 UNIT/ML VIAL SQ SCH (21:04)
[2019-11-02] MEDS: METOPROLOL TARTRATE 12.5 MG TAB PO SCH (21:05)
[2019-11-02] MEDS: ATORVASTATIN 80 MG TAB PO SCH (21:05)
--- NOTE | 2019-11-02 22:16 | P.CONS ---
History of Present Illness - Reason for Consult Consult date: 11/02/19 medical management Requesting physician: Mitch Arellano - Chief Complaint chest pain - History of Present Illness I was wearing full PPE during this encounter including N95 mask, face shield, and head cover. 64-year-old male with history of thyrotoxicosis status post surgery, A. fib status post cardioversion not on blood thinners, diabetes mellitus on oral hypoglycemic Patient comes in with 2 hour history of chest pain described as epigastric retrosternal stabbing pain 8 out of 10 in severity started while driving back home he thought it's indigestion after getting home pain did not subside his gave him couple aspirins after he started complaining of pain radiating to his neck and decided to bring him to the hospital for evaluation patient denies any associated diaphoresis nausea vomiting shortness of breath fevers chills coughing denies any dizziness or lightheadedness denies any associated palpitations dizzy denies any similar pain in the past. He works with heavy machinery involves heavy lifting and denies any chest pain limiting his activity in the past In the ED he was suspected to have a STEMI was taken to the [facility] and RCA was stented through a right groin access. Patient is doing well at this time denies any chest pain denies any shortness of breath minutes was consulted for medical management Review of Systems Pertinent positives as noted in HPI. All other systems were reviewed and are negative Past Medical History Past Medical History: Atrial Fibrillation, Coronary Artery Disease (CAD), Diabetes Mellitus, Thyroid Disorder Additional Past Medical History / Comment(s): gout, coronary artery disease with prior LAD occlusion at age 37 requiring angioplasty, History of Any Multi-Drug Resistant Organisms: None Reported Past Surgical History: Appendectomy, Heart Catheterization, Heart Catheterization With Stent Additional Past Surgical History / Comment(s): colonoscopy/polyps removed were benign, heart cath/angioplasy(blkg lad). had appy when he was in his 20's then 5 years ago had sx to go in and removed a suture that never dissolved and clean area out. 09/23/16-RT THYROID LOBECTOMY AND PARATHYROID BX Past Anesthesia/Blood Transfusion Reactions: No Reported Reaction Date of Last Stent Placement:: AGE 37 Past Psychological History: No Psychological Hx Reported Smoking Status: Current every day smoker Past Alcohol Use History: None Reported Past Drug Use History: None Reported - Past Family History Father Family Medical History: Myocardial Infarction ([place]) Additional Family Medical History / Comment(s): dad at age 55 from [place] Mother Family Medical History: Cancer Additional Family Medical History / Comment(s): from bladder cancer age 88 Sister(s) Family Medical History: No Reported History Brother(s) Family Medical History: No Reported History Daughter(s) Family Medical History: No Reported History Son(s) Family Medical History: No Reported History Medications and Allergies Home Medications Medication Instructions Recorded Confirmed Type metFORMIN HCL 1,000 mg PO BID 11/02/19 11/02/19 History Allergies Allergy/AdvReac Type Severity Reaction Status Date / Time No Known Allergies Allergy Verified 11/02/19 17:58 Physical Exam Vitals: Vital Signs Temp Pulse Resp BP Pulse Ox 11/02/19 20:00 98.1 F 75 18 133/73 96 11/02/19 18:02 77 18 160/95 99 11/02/19 17:45 80 18 185/97 100 11/02/19 17:35 185/97 11/02/19 17:19 97.6 F 82 20 189/95 99 Intake and Output 11/02/19 11/02/19 11/02/19 06:59 14:59 22:59 Intake Total 687 Output Total 700 Balance -13 Intake: IV 537 Intake, IV Titration 150 Amount Sodium Chloride 0.9% 1, 150 000 ml @ 75 mls/hr IV . [id number] [facility] Rx#:[id number] Output: Urine 700 Other: Weight 99.79 kg Constitutional: No acute distress, conversant, pleasant Eyes: Anicteric sclerae, moist conjunctiva, no lid-lag Pupils equal round reactive to light ENMT: NC/AT Oropharynx clear, no erythema, exudates Neck: Supple, FROM, no masses, or JVD No carotid bruits No thyromegaly Lungs: Clear to auscultation Clear to percussion Normal respiratory effort, no accessory muscle use Cardiovascular: Heart regular in rate and rhythm, No murmurs, gallops, or rubs No peripheral edema Abdominal: Soft Nontender, no guarding, rebound or rigidity Abdomen moving with respiration Normoactive bowel sounds No hepatomegaly, No splenomegaly No palpable mass No abdominal wall hernia noted Skin: Normal temperature, tone, texture, turgor No induration No subcutaneous nodules No rash, lesions No ulcers Extremities: Right groin looks unremarkable no ecchymosis no bruising no bleeding. No digital cyanosis No clubbing Pedal pulses intact and symmetrical Radial pulses intact and symmetrical No calf tenderness Psychiatric: Alert and oriented to person, place and time Appropriate affect fair judgement Neuro Muscles Strength 5/5 in all 4 extremities Sensation to light touch grossly present throughout Cranial nerves II-XII grossly intact No focal sensory deficits Lymphatics: no palpable cervical or supraclavicular , or inguinal lymph nodes Results CBC & Chem 7: 11/02/19 17:39 11/02/19 17:39 Labs: Abnormal Lab Results - Last 24 Hours (Table) 11/02/19 11/02/19 11/02/19 Range/Units 17:39 17:39 17:39 WBC 13.4 H (3.8-10.6) k/uL Neutrophils # 10.4 H (1.3-7.7) k/uL Sodium 135 L (137-145) mmol/L Glucose 348 H (74-99) mg/dL POC Glucose (mg/dL) (75-99) mg/dL Troponin I 0.043 H* (0.000-0.034) ng/mL 11/02/19 Range/Units 19:37 WBC (3.8-10.6) k/uL Neutrophils # (1.3-7.7) k/uL Sodium (137-145) mmol/L Glucose (74-99) mg/dL POC Glucose (mg/dL) 310 H (75-99) mg/dL Troponin I (0.000-0.034) ng/mL Assessment and Plan Assessment: 64-year-old male with history of thyrotoxicosis status post surgery, A. fib status post cardioversion not on blood thinners, diabetes mellitus on oral hypoglycemic Patient comes in for chest pain was diagnosed with STEMI in the ED was taken to the [facility] status post RCA stenting through right groin access patient doing well. Medicine consulted for medical management Diabetes mellitus unknown A1c, on oral hypoglycemic Hold oral hypoglycemics Insulin sliding scale Check A1c History of A. fib status post cardioversion not on blood thinners Coronary artery disease STEMI Management per cardiology Patient was started on low-dose metoprolol and TERRANCE inhibitor full dose of statin aspirin and Effient Cardiac monitoring Management post left heart cath in the ICU Follow-up morning labs History of thyrotoxicosis status post surgery Not on levothyroxine Continue follow-up outpatient with endocrinology Leukocytosis reactive to STEMI Continuing to monitor for any fevers Patient is full code DVT prophylaxis heparin subcu 3 times a day Thank you for allowing us to participate in the care of this patient. Do not hesitate to contact us with questions. Someone can be reached from the [facility] hospitalist group at all hours of the day at [phone].
[2019-11-03] MEDS: HEPARIN SODIUM,PORCINE 5,000 UNIT/ML 1 ML VIAL SQ SCH ×3 (00:11→15:13)
[2019-11-03 06:12] LABS: Mean Platelet Volume 7.9; Platelet Count 212 k/uL (150-450)
[2019-11-03 06:15] LABS: African American GFR (CKD) >90 (>60 ml/min/1.73 sqM); Cholesterol 182 mg/dL (<200); HDL Cholesterol 40 mg/dL (40-60); LDL Cholesterol,Calculated 120 mg/dL (0-99); Non-African American GFR(CKD) >90 (>60 ml/min/1.73 sqM); Triglycerides 108 mg/dL (<150)
[2019-11-03 06:50] LABS: Glucose,Whole Blood 306 mg/dL (75-99)
[2019-11-03] MEDS: INSULIN ASPART (NovoLOG) 100 UNIT/ML VIAL SQ SCH ×4 (06:53→22:11)
[2019-11-03 08:17] LABS: African American GFR (CKD) >90 (>60 ml/min/1.73 sqM); Anion Gap 8 mmol/L; Blood Urea Nitrogen 18 mg/dL (9-20); Calcium 8.2 mg/dL (8.4-10.2); Carbon Dioxide 22 mmol/L (22-30); Chloride 103 mmol/L (98-107); Glucose 300 mg/dL (74-99); Non-African American GFR(CKD) >90 (>60 ml/min/1.73 sqM); Potassium 4.1 mmol/L (3.5-5.1); Sodium 133 mmol/L (137-145)
[2019-11-03 08:19] LABS: Basophils % (A) 0 %; Eosinophils # (A) 0.1 k/uL (0-0.7); Eosinophils % (A) 1 %; HCT 42.3 % (39.0-53.0); HGB 14.7 gm/dL (13.0-17.5); Lymphocytes # (A) 2.3 k/uL (1.0-4.8); Lymphocytes % (A) 21 %; MCH 31.2 pg (25.0-35.0); MCHC 34.8 g/dL (31.0-37.0); MCV 89.7 fL (80.0-100.0); Mean Platelet Volume 8.2; Monocytes # (A) 0.6 k/uL (0-1.0); Monocytes % (A) 6 %; Neutrophils # (A) 7.3 k/uL (1.3-7.7); Neutrophils % (A) 68 %; Platelet Count 229 k/uL (150-450); RBC 4.71 m/uL (4.30-5.90); RDW 12.8 % (11.5-15.5); WBC 10.8 k/uL (3.8-10.6)
[2019-11-03] MEDS: ASPIRIN 81 MG PO SCH (08:48)
[2019-11-03] MEDS: LISINOPRIL 2.5 MG TAB PO SCH (08:48)
[2019-11-03] MEDS: METOPROLOL TARTRATE 12.5 MG TAB PO SCH ×2 (08:48→22:11)
--- NOTE | 2019-11-03 08:49 | PN ---
PROGRESS NOTE Mr. Garcia is a 64-year-old gentleman who used to see Dr. Arellano before he came into the hospital with acute inferior [place] underwent stenting of RCA. Apparently, LAD was patent. The patient is a smoker and continues to smoke. He had the procedure performed yesterday from right femoral approach and this area is clean and dry with a good pulse. He is doing well, had a very comfortable night. No chest discomfort. His vital signs are stable. He has no JVD. S1, S2 heard normally. Lungs revealed decent air entry. Abdomen is soft. Lower extremities reveal palpable pulses. Right groin is clean and dry with a good pulse. The rest of the physical examination is unchanged. His laboratory data from today reveals hemoglobin of 14.7. Renal function is good. His troponin went up to 77 and is coming back to 53. His EKG initially revealed inferior ST elevation. Plan is to increase activity, perform an echocardiogram today and put him on a diabetic diet since patient has diabetes and takes metformin. I will continue 0.9 saline 75 mL for 6 more hours. Obtain a CBC, BMP and decrease the aspirin to 81 mg daily. If he remains stable, he can be moved out of ICU to telemetry this afternoon. I discussed my thoughts in detail with the patient and counseled regarding the importance of smoking cessation. MMODL / IJN: [id number] /
[2019-11-03] MEDS ORDERED: ASPIRIN 325 MG TAB PO SCH ×2 (09:00)
[2019-11-03] MEDS ORDERED: ATORVASTATIN 80 MG TAB PO SCH (09:00)
--- NOTE | 2019-11-03 09:30 | ECHOF ---
Referral Reason:STEMI MEASUREMENTS -------- HEIGHT: 182.9 cm WEIGHT: 93.4 kg BP: RVIDd: 1.8 cm (< 3.3) IVSd: 0.8 cm (0.6 - 1.1) LVIDd: 4.9 cm (3.9 - 5.3) LVPWd: 1.0 cm (0.6 - 1.1) IVSs: 2.1 cm LVIDs: 2.0 cm LVPWs: 2.0 cm LAESV Index (A-L): 15.04 ml/m Ao Diam: 3.4 cm (2.0 - 3.7) AV Cusp: 2.2 cm (1.5 - 2.6) LA Diam: 3.3 cm (2.7 - 3.8) MV EXCURSION: 9.718 mm (> 18.000) MV EF SLOPE: 56 mm/s (70 - 150) EPSS: 0.9 cm MV E Gael: 1.00 m/s MV DecT: 251 ms MV A Gael: 0.96 m/s MV E/A Ratio: 1.04 RAP: 5.00 mmHg RVSP: 12.04 mmHg TAPSE: 36.01 mm FINDINGS -------- Sinus rhythm. This was a technically difficult study with suboptimal views. The left ventricular size is normal. Left ventricular wall thickness is normal. Overall left vent ricular systolic function is mildly impaired with, an EF between 45 - 50 %. Normal LAP Grade 1 Dick tolic Dysfunction. Basal inferior LV wall motion is hypokinetic. Mid inferior LV wall motion is hypokinetic. Apical inferior LV wall motion is hypokinetic. Apical septum LV wall motion is hyp okinetic. The right ventricle is normal in size. Normal LA size by volume 22+/-6 ml/m2. The right atrial size is normal. Lumason used The aortic valve is trileaflet, and appears structurally normal. No aortic stenosis or regurgitation. The mitral valve is normal. There is trace mitral regurgitation. The tricuspid valve appears structurally normal. Trace tricuspid regurgitation present. Right zaid tricular systolic pressure is normal at < 35 mmHg. There is no pulmonic regurgitation present. The aortic root size is normal. IVC Not well visulized. There is no pericardial effusion. CONCLUSIONS -------- 1. The left ventricular size is normal. 2. Left ventricular wall thickness is normal. 3. Overall left ventricular systolic function is mildly impaired with, an EF between 45 - 50 %. 4. Normal LAP Grade 1 Diastolic Dysfunction. 5. Basal inferior LV wall motion is hypokinetic. 6. Mid inferior LV wall motion is hypokinetic. 7. Apical inferior LV wall motion is hypokinetic. 8. Apical septum LV wall motion is hypokinetic. 9. Normal LA size by volume 22+/-6 ml/m2. 10. Lumason used 11. The aortic valve is trileaflet, and appears structurally normal. No aortic stenosis or regurgitat ion. 12. There is trace mitral regurgitation. 13. The tricuspid valve appears structurally normal. 14. Trace tricuspid regurgitation present. 15. There is no pulmonic regurgitation present. 16. IVC Not well visulized. 17. There is no pericardial effusion. GOLD LETTERER: Caren Roy RDCS
--- NOTE | 2019-11-03 11:29 | P.CRDCN ---
History of Present Illness Consult date: 11/02/19 Chief complaint: Chest pain History of present illness: This is a very pleasant 64-year-old gentleman with significant for CAD and prior stenting of the LAD, hypertension, and dyslipidemia, presented to the emergency complaining of chest discomfort.He was in his usual state of health until yesterday when he started experiencing chest discomfort, at the mid of the chest as well as in the epigastric area. It was associated with shortness of breat as well as sweating. In the ER an EKG was performed and showed acute inferior ST elevation [place] he underwent an emergent heart cath and was found to have occluded RCA distally.He underwent successful stenting of the RCA with excellent angiographic results and reduction of stenosis from 100% to 0%. He was chest pain-free. The procedure was performed from the right groin. The patient will be admitted to the intensive care unit and he will be on dual antiplatelet therapy along with high intensity statin. Please note that the pa was found to have also intermediate disease involving the RCA and LCx. Past Medical History Past Medical History: Atrial Fibrillation, Coronary Artery Disease (CAD), Diabetes Mellitus, Thyroid Disorder Additional Past Medical History / Comment(s): gout, coronary artery disease with prior LAD occlusion at age 37 requiring angioplasty, History of Any Multi-Drug Resistant Organisms: None Reported Past Surgical History: Appendectomy, Heart Catheterization, Heart Catheterization With Stent Additional Past Surgical History / Comment(s): colonoscopy/polyps removed were benign, heart cath/angioplasy(blkg lad). had appy when he was in his 20's then 5 years ago had sx to go in and removed a suture that never dissolved and clean area out. 09/23/16-RT THYROID LOBECTOMY AND PARATHYROID BX Past Anesthesia/Blood Transfusion Reactions: No Reported Reaction Date of Last Stent Placement:: AGE 37 Past Psychological History: No Psychological Hx Reported Smoking Status: Current every day smoker Past Alcohol Use History: None Reported Past Drug Use History: None Reported - Past Family History Father Family Medical History: Myocardial Infarction ([place]) Additional Family Medical History / Comment(s): dad at age 55 from [place] Mother Family Medical History: Cancer Additional Family Medical History / Comment(s): from bladder cancer age 88 Sister(s) Family Medical History: No Reported History Brother(s) Family Medical History: No Reported History Daughter(s) Family Medical History: No Reported History Son(s) Family Medical History: No Reported History Medications and Allergies Home Medications Medication Instructions Recorded Confirmed Type metFORMIN HCL 1,000 mg PO BID 11/02/19 11/02/19 History Allergies Allergy/AdvReac Type Severity Reaction Status Date / Time No Known Allergies Allergy Verified 11/02/19 17:58 Physical Exam Vitals: Vital Signs Temp Pulse Resp BP Pulse Ox 11/03/19 08:00 97.7 F 65 12 103/63 97 11/03/19 06:00 56 L 14 91/61 97 11/03/19 05:00 54 L 12 106/58 97 11/03/19 04:00 98.0 F 56 L 14 96/51 98 11/03/19 03:00 54 L 14 92/64 97 11/03/19 02:00 56 L 14 91/58 97 11/03/19 01:00 61 16 103/61 95 11/03/19 00:00 98.0 F 61 14 115/63 96 11/02/19 23:00 64 16 109/62 97 11/02/19 22:00 75 16 111/67 96 11/02/19 21:00 63 16 123/78 97 11/02/19 20:00 98.1 F 75 18 133/73 96 11/02/19 18:02 77 18 160/95 99 11/02/19 17:45 80 18 185/97 100 11/02/19 17:35 185/97 11/02/19 17:19 97.6 F 82 20 189/95 99 Intake and Output 11/02/19 11/03/19 11/03/19 22:59 06:59 14:59 Intake Total 837 675 325 Output Total 2049 Balance -1213 675 325 Intake: IV 537 75 Sodium Chloride 0.9% 1, 75 000 ml @ 75 mls/hr IV . [id number] [facility] Rx#:[id number] Intake, IV Titration 300 675 Amount Sodium Chloride 0.9% 1, 300 675 000 ml @ 75 mls/hr IV . [id number] [facility] Rx#:[id number] Oral 250 Output: Urine 2049 Other: # Voids 1 1 Weight 99.79 kg 93.7 kg - Constitutional General appearance: no acute distress - Respiratory Respiratory: bilateral: CTA - Cardiovascular Rhythm: regular Heart sounds: normal: S1, S2 Results 11/03/19 05:24 11/03/19 05:24 Cardiac Enzymes 11/02/19 11/02/19 11/02/19 Range/Units 17:39 17:39 23:42 AST 23 (17-59) U/L CK-MB (CK-2) 1.0 (0.0-2.4) ng/mL Troponin I 0.043 H* 77.200 H* (0.000-0.034) ng/mL 11/03/19 Range/Units 05:23 AST (17-59) U/L CK-MB (CK-2) (0.0-2.4) ng/mL Troponin I 53.500 H* (0.000-0.034) ng/mL Coagulation 11/02/19 11/02/19 Range/Units 17:39 23:42 PT 9.4 (9.0-12.0) sec APTT 24.9 31.7 H (22.0-30.0) sec Lipids 11/03/19 Range/Units 05:23 Triglycerides 108 (<150) mg/dL Cholesterol 182 (<200) mg/dL HDL Cholesterol 40 (40-60) mg/dL CBC 11/02/19 11/03/19 11/03/19 Range/Units 17:39 05:23 05:24 WBC 13.4 H 10.8 H (3.8-10.6) k/uL RBC 5.31 4.71 (4.30-5.90) m/uL Hgb 16.4 14.7 (13.0-17.5) gm/dL Hct 47.0 42.3 (39.0-53.0) % Plt Count 236 212 229 (150-450) k/uL Comprehensive Metabolic Panel 11/02/19 11/03/19 11/03/19 Range/Units 17:39 05:23 05:24 Sodium 135 L 133 L (137-145) mmol/L Potassium 4.1 4.1 (3.5-5.1) mmol/L Chloride 100 103 (98-107) mmol/L Carbon Dioxide 25 22 (22-30) mmol/L BUN 16 18 (9-20) mg/dL Creatinine 0.95 0.86 0.90 (0.66-1.25) mg/dL Glucose 348 H 300 H (74-99) mg/dL Calcium 9.6 8.2 L (8.4-10.2) mg/dL AST 23 (17-59) U/L ALT 21 (4-49) U/L Alkaline Phosphatase 99 (38-126) U/L Total Protein 7.2 (6.3-8.2) g/dL Albumin 4.5 (3.5-5.0) g/dL Current Medications Generic Name Dose Route Start Last Admin Trade Name Freq PRN Reason Stop Dose Admin Al Hydroxide/Mg Hydroxide 30 ml 11/02/19 19:07 Maalox PO Q4HR PRN Heartburn Aspirin 81 mg 11/03/19 09:00 11/03/19 08:48 Aspirin PO 81 mg DAILY [facility] Administration Atorvastatin Calcium 80 mg 11/02/19 21:00 11/02/19 21:05 Lipitor PO 80 mg HS [facility] Administration Atropine Sulfate 0.5 mg 11/02/19 19:07 Atropine IV ONCE PRN Symptomatic Bradycardia Heparin Sodium (Porcine) 0 unit 11/02/19 17:38 Heparin IV Q6HR PRN Low PTT Protocol Heparin Sodium (Porcine) 5,000 unit 11/03/19 00:00 11/03/19 08:48 Heparin SQ 5,000 unit Q8HR [facility] Administration Insulin Aspart 0 unit 11/02/19 21:00 11/03/19 06:53 Novolog SQ 8 unit ACHS [facility] Administration Protocol Lisinopril 2.5 mg 11/03/19 09:00 11/03/19 08:48 Zestril PO 2.5 mg DAILY [facility] Administration Metoprolol Tartrate 12.5 mg 11/02/19 21:00 11/03/19 08:48 Lopressor PO 12.5 mg BID [facility] Administration Miscellaneous Information 1 each 11/02/19 19:07 Rx Info: Iv Contrast Was Given MISCELLANE 11/04/19 19:07 DAILY PRN Per Protocol Morphine Sulfate 4 mg 11/02/19 17:38 Morphine Sulfate (Inj) IV Q4HR PRN Chest Pain Nitroglycerin 0.4 mg 11/02/19 19:07 Nitrostat SUBLINGUAL Q5M PRN Chest Pain Prasugrel 10 mg 11/03/19 14:00 Effient PO DAILY [facility] Zolpidem Tartrate 5 mg 11/02/19 19:07 Ambien PO HS PRN Insomnia Intake and Output 11/02/19 11/03/19 11/03/19 22:59 06:59 14:59 Intake Total 837 675 325 Output Total 2049 Balance -1213 675 325 Intake: IV 537 75 Sodium Chloride 0.9% 1, 75 000 ml @ 75 mls/hr IV . [id number] [facility] Rx#:[id number] Intake, IV Titration 300 675 Amount Sodium Chloride 0.9% 1, 300 675 000 ml @ 75 mls/hr IV . [id number] [facility] Rx#:[id number] Oral 250 Output: Urine 2049 Other: # Voids 1 1 Weight 99.79 kg 93.7 kg 11/03/19 05:24 11/03/19 05:24 Assessment and Plan Assessment: Assessment Acute inferior ST elevation [place] Known CAD and prior angioplasty Hypertension Dyslipidemia Plan Status post PCI of the RCA Dual antiplatelet therapy ICU admission Follow-up with the terell
[2019-11-03 12:24] LABS: Glucose,Whole Blood 261 mg/dL (75-99)
[2019-11-03 12:55] LABS: Hemoglobin A1C 12.2 % (4.0-6.0)
--- NOTE | 2019-11-03 13:01 | P.PN ---
Subjective Progress Note Date: 11/03/19 Patient seen and examined at bedside, he is doing well denies any significant complaints denies chest pain shortness of breath, white count of 10.8 this morning, sodium 133. Troponins had previous and trended up as high as 77 now down to 53.5. Echocardiogram showed a mildly impaired LVEF of 45-50%, but also grade 1 diastolic dysfunction Objective - Vital Signs Vital signs: Vital Signs Temp 97.7 F 11/03/19 08:00 Pulse 65 11/03/19 08:00 Resp 12 11/03/19 08:00 BP 103/63 11/03/19 08:00 Pulse Ox 97 11/03/19 08:00 Intake & Output 11/02/19 11/03/19 11/03/19 18:59 06:59 18:59 Intake Total 537 975 325 Output Total 2050 Balance 537 -1075 325 Weight 99.79 kg 93.7 kg Intake: IV 537 75 Sodium Chloride 0.9% 1, 75 000 ml @ 75 mls/hr IV . [id number] [facility] Rx#:[id number] Intake, IV Titration 975 Amount Sodium Chloride 0.9% 1, 975 000 ml @ 75 mls/hr IV . [id number] [facility] Rx#:[id number] Oral 250 Output: Urine 2049 Other: # Voids 1 1 - Exam Constitutional: No acute distress, conversant, pleasant Eyes: Anicteric sclerae, moist conjunctiva, no lid-lag, PERRLA ENMT: NC/AT,Oropharynx clear, no erythema, exudates Neck:Supple, FROM, no masses, or JVD, No carotid bruits; No thyromegaly Lungs: Clear to auscultation, Clear to percussion, Normal respiratory effort, no accessory muscle use Cardiovascular: Heart regular in rate and rhythm, No murmurs, gallops, or rubs no peripheral edema Abdominal: Soft Nontender, nom distended, no guarding, no rebound or rigidity, Normoactive bowel sounds No hepatomegaly, No splenomegaly, No palpable mass No abdominal wall hernia noted Skin: Normal temperature, tone, texture, turgor, No induration No subcutaneous nodules, No rash, lesions, No ulcers Extremities:No digital cyanosis No clubbing, Pedal pulses intact and symmetrical Radial pulses intact and symmetrical Normal gait and station, No calf tenderness Psychiatric: Alert and oriented to person, place and time, Appropriate affect Intact judgement Neuro: Muscles Strength 5/5 in all 4 extremities, Sensation to light touch grossly present throughout, Cranial nerves II-XII grossly intact. No focal sensory deficits - Labs CBC & Chem 7: 11/03/19 05:24 11/03/19 05:24 Labs: Abnormal Lab Results - Last 24 Hours (Table) 11/02/19 11/02/19 11/02/19 Range/Units 17:39 17:39 17:39 WBC 13.4 H (3.8-10.6) k/uL Neutrophils # 10.4 H (1.3-7.7) k/uL APTT (22.0-30.0) sec Sodium 135 L (137-145) mmol/L Glucose 348 H (74-99) mg/dL POC Glucose (mg/dL) (75-99) mg/dL Calcium (8.4-10.2) mg/dL Troponin I 0.043 H* (0.000-0.034) ng/mL LDL Cholesterol, Calc (0-99) mg/dL 11/02/19 11/02/19 11/02/19 Range/Units 19:37 20:59 23:42 WBC (3.8-10.6) k/uL Neutrophils # (1.3-7.7) k/uL APTT 31.7 H (22.0-30.0) sec Sodium (137-145) mmol/L Glucose (74-99) mg/dL POC Glucose (mg/dL) 310 H 353 H (75-99) mg/dL Calcium (8.4-10.2) mg/dL Troponin I (0.000-0.034) ng/mL LDL Cholesterol, Calc (0-99) mg/dL 11/02/19 11/03/19 11/03/19 Range/Units 23:42 05:23 05:23 WBC (3.8-10.6) k/uL Neutrophils # (1.3-7.7) k/uL APTT (22.0-30.0) sec Sodium (137-145) mmol/L Glucose (74-99) mg/dL POC Glucose (mg/dL) (75-99) mg/dL Calcium (8.4-10.2) mg/dL Troponin I 77.200 H* 53.500 H* (0.000-0.034) ng/mL LDL Cholesterol, Calc 120 H (0-99) mg/dL 11/03/19 11/03/19 11/03/19 Range/Units 05:24 05:24 06:49 WBC 10.8 H (3.8-10.6) k/uL Neutrophils # (1.3-7.7) k/uL APTT (22.0-30.0) sec Sodium 133 L (137-145) mmol/L Glucose 300 H (74-99) mg/dL POC Glucose (mg/dL) 306 H (75-99) mg/dL Calcium 8.2 L (8.4-10.2) mg/dL Troponin I (0.000-0.034) ng/mL LDL Cholesterol, Calc (0-99) mg/dL 11/03/19 Range/Units 11:56 WBC (3.8-10.6) k/uL Neutrophils # (1.3-7.7) k/uL APTT (22.0-30.0) sec Sodium (137-145) mmol/L Glucose (74-99) mg/dL POC Glucose (mg/dL) 261 H (75-99) mg/dL Calcium (8.4-10.2) mg/dL Troponin I (0.000-0.034) ng/mL LDL Cholesterol, Calc (0-99) mg/dL Assessment and Plan Assessment: Acute MT * Inferior ST elevation MT * Postop day #1 status post catheterization with stenting of the RCA secondary to total occlusion * Patient continued on beta donna dual antiplatelet therapy with aspirin and Effient Diabetes mellitus unknown A1c, on oral hypoglycemic * Hold oral hypoglycemics * Continue Insulin sliding scale * Check A1c pending Combined systolic and diastolic CHF * Echocardiogram showed a mildly impaired LVEF of 45-50%, but also grade 1 diastolic dysfunction * Continue History of A. fib status post cardioversion not on blood thinners Coronary artery disease * Treatment as above History of thyrotoxicosis status post surgery * Not on levothyroxine * Continue follow-up outpatient with endocrinology Leukocytosis reactive to STEMI * Patient afebrile , Continuing to monitor for any fevers
[2019-11-03 14:20] VITALS: BMI 28.0
[2019-11-03 14:46] LABS: Glucose,Whole Blood 343 mg/dL (75-99)
[2019-11-03] MEDS: PRASUGREL 10 MG TAB PO SCH (15:13)
[2019-11-03 17:10] LABS: Glucose,Whole Blood 240 mg/dL (75-99)
[2019-11-03 20:41] LABS: Glucose,Whole Blood 203 mg/dL (75-99)
[2019-11-03] MEDS: ATORVASTATIN 80 MG TAB PO SCH (22:11)
[2019-11-04] MEDS: HEPARIN SODIUM,PORCINE 5,000 UNIT/ML 1 ML VIAL SQ SCH ×2 (05:29→08:03)
[2019-11-04 05:41] LABS: Glucose,Whole Blood 230 mg/dL (75-99)
[2019-11-04 06:34] LABS: Platelet Count 188 k/uL (150-450)
[2019-11-04] MEDS: INSULIN ASPART (NovoLOG) 100 UNIT/ML VIAL SQ SCH ×2 (06:40→12:29)
--- NOTE | 2019-11-04 06:59 | XR ---
EXAMINATION TYPE: XR chest 2V DATE OF EXAM: 11/04/2019 HISTORY: chf. REFERENCE: Previous study dated 11/02/2019. FINDINGS: Heart size is within normal limits. The lungs appear clear. Pleural spaces are clear. Pulmo nary vasculature is normal. IMPRESSION: NO ACUTE INTRATHORACIC DISEASE.
[2019-11-04] MEDS: PRASUGREL 10 MG TAB PO SCH (08:02)
[2019-11-04] MEDS: METOPROLOL TARTRATE 12.5 MG TAB PO SCH (08:02)
[2019-11-04] MEDS: ASPIRIN 81 MG PO SCH (08:02)
[2019-11-04] MEDS: LISINOPRIL 2.5 MG TAB PO SCH (08:02)
[2019-11-04 08:27] LABS: ALT 52 U/L (4-49); AST 79 U/L (17-59); African American GFR (CKD) >90 (>60 ml/min/1.73 sqM); Albumin 3.4 g/dL (3.5-5.0); Alkaline Phosphatase 96 U/L (38-126); Anion Gap 4 mmol/L; Blood Urea Nitrogen 18 mg/dL (9-20); Calcium 8.3 mg/dL (8.4-10.2); Carbon Dioxide 26 mmol/L (22-30); Chloride 104 mmol/L (98-107); Glucose 238 mg/dL (74-99); Non-African American GFR(CKD) >90 (>60 ml/min/1.73 sqM); Potassium 4.6 mmol/L (3.5-5.1); Sodium 134 mmol/L (137-145); Total Bilirubin 0.9 mg/dL (0.2-1.3)
[2019-11-04 08:52] LABS: Basophils % (A) 0 %; Eosinophils # (A) 0.1 k/uL (0-0.7); Eosinophils % (A) 1 %; HCT 41.6 % (39.0-53.0); HGB 14.5 gm/dL (13.0-17.5); Lymphocytes # (A) 2.3 k/uL (1.0-4.8); Lymphocytes % (A) 23 %; MCH 31.4 pg (25.0-35.0); MCHC 34.9 g/dL (31.0-37.0); MCV 89.9 fL (80.0-100.0); Mean Platelet Volume 8.8; Monocytes # (A) 0.6 k/uL (0-1.0); Monocytes % (A) 6 %; Neutrophils # (A) 6.8 k/uL (1.3-7.7); Neutrophils % (A) 66 %; Platelet Count 206 k/uL (150-450); RBC 4.63 m/uL (4.30-5.90); RDW 12.7 % (11.5-15.5); WBC 10.3 k/uL (3.8-10.6)
--- NOTE | 2019-11-04 10:51 | P.PN ---
Subjective Progress Note Date: 11/04/19 Principal diagnosis: Acute MD Patient seen and examined at bedside. Patient denies chest pain, shortness of breath nausea, vomiting fever, or chills. Patient feels good and is eager to go home. Objective - Vital Signs Vital signs: Vital Signs Temp 97.6 F 11/04/19 07:58 Pulse 67 11/04/19 07:58 Resp 16 11/04/19 07:58 BP 109/59 11/04/19 07:58 Pulse Ox 99 11/04/19 07:58 Intake & Output 11/03/19 11/04/19 11/04/19 18:59 06:59 18:59 Intake Total 1147 10 240 Output Total 300 Balance 1147 10 -60 Weight 93.7 kg 93.8 kg Intake: IV 75 Sodium Chloride 0.9% 1, 75 000 ml @ 75 mls/hr IV . [id number] GAGANDEEP Rx#:[id number] Intake, IV Titration 600 10 Amount Sodium Chloride 0.9% 1, 10 000 ml @ 100 mls/hr IV . Q10H STA Rx#:[id number] Sodium Chloride 0.9% 1, 600 000 ml @ 75 mls/hr IV . [id number] GAGANDEEP Rx#:[id number] Oral 472 240 Output: Urine 300 Other: # Voids 2 1 - Exam General: [non toxic], [no distress], [appears at stated age] Derm: [warm], [dry] Head: [atraumatic], [normocephalic], [symmetric] Eyes: [EOMI], [no lid lag], [anicteric sclera] Mouth: [no lip lesion], [mucus membranes moist] Cardiovascular: [S1S2 reg], [no murmur], [positive posterior tibial pulse bilateral], Lungs: [CTA bilateral], [no rhonchi, no rales] , [no accessory muscle use] Abdominal: [soft], [ nontender to palpation], [no guarding], [no appreciable organomegaly] Ext: [no gross muscle atrophy], [no edema], [no contractures] Neuro: [ CN II-XI grossly intact], [no focal neuro deficits] Psych: [Alert], [oriented], [appropriate affect] - Labs CBC & Chem 7: 11/04/19 05:47 04/04/20 05:47 Labs: Abnormal Lab Results - Last 24 Hours (Table) 11/02/19 11/03/19 11/03/19 Range/Units 23:42 11:56 14:43 Sodium (137-145) mmol/L Glucose (74-99) mg/dL POC Glucose (mg/dL) 261 H 343 H (75-99) mg/dL Hemoglobin A1c 12.2 H (4.0-6.0) % Calcium (8.4-10.2) mg/dL AST (17-59) U/L ALT (4-49) U/L Total Protein (6.3-8.2) g/dL Albumin (3.5-5.0) g/dL 11/03/19 11/03/19 11/04/19 Range/Units 17:08 20:37 05:39 Sodium (137-145) mmol/L Glucose (74-99) mg/dL POC Glucose (mg/dL) 240 H 203 H 230 H (75-99) mg/dL Hemoglobin A1c (4.0-6.0) % Calcium (8.4-10.2) mg/dL AST (17-59) U/L ALT (4-49) U/L Total Protein (6.3-8.2) g/dL Albumin (3.5-5.0) g/dL 11/04/19 Range/Units 05:47 Sodium 134 L (137-145) mmol/L Glucose 238 H (74-99) mg/dL POC Glucose (mg/dL) (75-99) mg/dL Hemoglobin A1c (4.0-6.0) % Calcium 8.3 L (8.4-10.2) mg/dL AST 79 H (17-59) U/L ALT 52 H (4-49) U/L Total Protein 6.0 L (6.3-8.2) g/dL Albumin 3.4 L (3.5-5.0) g/dL Assessment and Plan Assessment: Acute MD * Inferior ST elevation MD * Postop day #2 status post catheterization with stenting of the RCA secondary to total occlusion * Patient continued on beta donna dual antiplatelet therapy with aspirin and Effient Diabetes mellitus , uncontrolled hba1c is 12.2 * Patient has not been on his metformin for months and recently renewed his prescription. Patient states that with oral metformin patient's blood sugar ranges from 200-300. Upon discharge I am recommending adding glipizide to his oral metformin. Restart metformin once discharged. Glipizide added today. Patient advised to check his blood sugars 3 times a day before each meal and to follow-up with his vendor specialist in 1 week. * Continue Insulin sliding scale * Check A1c pending Combined systolic and diastolic CHF * Echocardiogram showed a mildly impaired LVEF of 45-50%, but also grade 1 diastolic dysfunction * Continue History of A. fib status post cardioversion not on blood thinners Coronary artery disease * Treatment as above History of thyrotoxicosis status post surgery * Not on levothyroxine * Continue follow-up outpatient with endocrinology Leukocytosis reactive to STEMI * Patient afebrile , Continuing to monitor for any fevers
[2019-11-04] MEDS ORDERED: glipiZIDE 5 MG TAB PO SCH (11:00)
[2019-11-04 12:11] LABS: Glucose,Whole Blood 293 mg/dL (75-99)
--- NOTE | 2019-11-04 13:26 | PN ---
PROGRESS NOTE Mr. Garcia is status post stenting of his RCA performed yesterday by Dr. Arellano. He is doing well. His ejection fraction is in the 45% to 50% range with mild inferobasal hypokinesia. Vitals are stable. No JVD. S1, S2 heard normally. Lungs reveal improved air entry. Abdomen and lower extremity exam unchanged. Patient insists on going home with COVID-19 environment. I have advised him to refrain from smoking, same medical regimen. He will take dual antiplatelet therapy. I gave him instructions regarding medications, diet, activity, and he will come back and see Dr. Arellano in one week. MMODL / IJN: [id number] /
[2019-11-04 16:05] VITALS: BP 111/65; PULSE 66; RESP 18; TEMP 97.9
--- NOTE | 2019-11-04 21:55 | P.DS ---
Providers Date of admission: 11/02/19 17:47 Expected date of discharge: 11/04/19 Attending physician: Fern Carballo DO Consults: 11/02/19 17:38 Consult Physician Urgent Consulting Provider: Cathleen Echols Consult Reason/Comments: stemi Do you want consulting provider notified?: Yes 11/02/19 19:07 Consult Physician Routine Consulting Provider: [facility] Consult Reason/Comments: Post Interventional patient Do you want consulting provider notified?: Already Contacted 11/03/19 07:37 Consult Physician Stat Consulting Provider: Antonio Kaba Consult Reason/Comments: Primary Medical Management Do you want consulting provider notified?: Yes Primary care physician: [facility] Course: Admit Diagnoses: 1. Acute NH 2. DM 3. Heart failure 4. Hx of atrial Fib Discharge Diagnoses 1-Acute NH Inferior ST elevation NH status post catheterization with stenting of the RCA secondary to total occlusion Patient continued on beta donna dual antiplatelet therapy with aspirin and Effient 2-Diabetes mellitus , uncontrolled hba1c is 12.2 Patient has not been on his metformin for months and recently renewed his prescription. Patient states that with oral metformin patient's blood sugar ranges from 200-300. Upon discharge I am recommending adding glipizide to his oral metformin. Restart metformin once discharged. Glipizide added today. Patient advised to check his blood sugars 3 times a day before each meal and to follow-up with his artificial cherry maker in 1 week. 3-Combined systolic and diastolic CHF 4- History of A. fib status post cardioversion not on blood thinners 5- Coronary artery disease This is a very pleasant 64-year-old gentleman with significant for CAD and prior stenting of the LAD, hypertension, and dyslipidemia, presented to the emergency complaining of chest discomfort.He was in his usual state of health until yesterday when he started experiencing chest discomfort, at the mid of the chest as well as in the epigastric area. It was associated with shortness of breath as well as sweating. In the ER an EKG was performed and showed acute inferior ST elevation NH he underwent an emergent heart cath and was found to have occluded RCA distally.He underwent successful stenting of the RCA with excellent angiographic results and reduction of stenosis from 100% to 0%. He was chest pain-free. Patient was found to have uncontrolled diabetes with a hba1c of 12.2% Glipizide was added to oral metformin. Patient is to follow-up with his artificial cherry maker as an out patient. Echocardiogram revealed an EF of 45-50% with a hypokinetic left ventrical. Chest xray reveal no acute cardiopulmonary process. vitals temp 98.6, HR 61 BP 125/67 oxygen 98%ra labs mildly elevated transaminases secondary to medications and possible fatty liver follow-up with pcp Physical General overweight alert no acute distress appearance appropriate for age Heart RRR s1s2 Lungs CTAB ABD soft NT/ND + BSx 4 Ext -e/c/c Diet Diabetetic diet 1500 calories Follow-up with pcp in 2-7 days Follow-up with cardiology in 1-2 weeks Follow-up with known artificial cherry maker to patient in 1 week Patient Condition at Discharge: Fair Plan - Discharge Summary Discharge Rx Participant: No New Discharge Prescriptions: New Aspirin 81 mg PO DAILY #30 chew Prasugrel [Effient] 10 mg PO DAILY #30 tab glipiZIDE [Glucotrol] 5 mg PO AC-BRKFST #30 tab Atorvastatin [Lipitor] 80 mg PO HS #30 tab Metoprolol Tartrate [Lopressor] 12.5 mg PO BID 30 Days #60 tab Nitroglycerin Sl Tabs [Nitrostat] 0.4 mg SUBLINGUAL Q5M PRN #30 tab PRN Reason: Chest Pain Lisinopril [Zestril] 2.5 mg PO DAILY 30 Days #30 tab Continue metFORMIN HCL 1,000 mg PO BID #60 tab Discharge Medication List Aspirin 81 mg PO DAILY #30 chew 11/04/19 [Rx] Atorvastatin [Lipitor] 80 mg PO HS #30 tab 11/04/19 [Rx] Lisinopril [Zestril] 2.5 mg PO DAILY 30 Days #30 tab 11/04/19 [Rx] Metoprolol Tartrate [Lopressor] 12.5 mg PO BID 30 Days #60 tab 11/04/19 [Rx] Nitroglycerin Sl Tabs [Nitrostat] 0.4 mg SUBLINGUAL Q5M PRN #30 tab 11/04/19 [Rx] Prasugrel [Effient] 10 mg PO DAILY #30 tab 11/04/19 [Rx] glipiZIDE [Glucotrol] 5 mg PO AC-BRKFST #30 tab 11/04/19 [Rx] metFORMIN HCL 1,000 mg PO BID #60 tab 11/04/19 [Rx] Follow up Appointment(s)/Referral(s): Mitch Arellano MD [STAFF PHYSICIAN] - 11/13/19 2:00 pm Romy Cesar MD [Primary Care Provider] - 1-2 days (Please call office on Wednesday for a telephone follow up appointment with primary provider. ) Patient Instructions/Handouts: *[facility]gery [facility] - After Heart Catheterization - Testing Coordinator Instructions, Heart Attack (DC), How to Stop Smoking (DC), Heart Healthy Diet (DC) Activity/Diet/Wound Care/Special Instructions: May need prescription for diabetic supplies. Discharge Disposition: HOME SELF-CARE
--- NOTE | 2019-11-06 13:08 | CDI ---
Documentation Clarification Form Date: 11/06/19 From: Alejandra Acevedo CCS Phone: If you have a question about this query, please contact Tricia Flores, [employer] Knitting [employer] Operator at [phone] between 8am and 5pm. Admit Date: 11/02/19 Discharge Date:11/04/19 Patient Name: Kaushik Garcia Visit Number: [id number] ATTENTION: The Clinical Documentation Specialists (CDI) and [employer] [facility] [employer] Coding Staff appreciate your assistance in clarifying documentation. Please respond to the clarification below the line at the bottom and electronically sign. The CDI & [employer] Coding staff will review the response and follow-up if needed. Please note: Queries are made part of the Legal Health Record. If you have any questions, please contact the author of this message via ITS. Dear Dr. Carballo, Combined systolic and diastolic CHF is documented in the PNs, DS. History/Risk Factors: CAD, HTN, DM, Tobacco, HX AFIB, Acute inferior ST CT Clinical Indicators: Shortness of breath VS/Pulse OX: BP 160/95, RR 18, OR 77, O2 Sat 99 Echocardiogram Results: Overall left ventricular systolic function is mildly impaired with, an EF between 45 - 50 %.Normal LAP Grade 1 Diastolic Dysfunction. Chest X Ray: Chronic changes without evidence for acute pulmonary disease. Treatment: Lasix 20 mg IVP, Lasix 40 mg In your professional opinion, can you please clarify the acuity of CHF if known? Systolic & Diastolic Heart Failure: Acute Chronic Acute on Chronic Heart Failure Unable to Determine Other, please specify Acute on chronic systolic and diastolic heart failure MTDD
== END 2019-11-04 16:53 | disposition home or self-care (01) | DRG 246 ==
LOC: EC 17:15 → 2SICU 17:47 → 3SCARD 11-03 09:51
PROVIDERS: ADMIT Internal Medicine; ATTEND Internal Medicine
PROC: B2111ZZ Fluoroscopy of Multiple Coronary Arteries using Low Osmolar Contrast (ICD-10-PCS; principal; 2019-11-02 18:03)
PROC: 02C03ZZ Extirpation of Matter from Coronary Artery, One Artery, Percutaneous Approach (ICD-10-PCS; principal; 2019-11-02 18:03)
PROC: 027034Z Dilation of Coronary Artery, One Artery with Drug-eluting Intraluminal Device, Percutaneous Approach (ICD-10-PCS; principal; 2019-11-02 18:03)
PROC: 4A023N7 Measurement of Cardiac Sampling and Pressure, Left Heart, Percutaneous Approach (ICD-10-PCS; principal; 2019-11-02 18:03)
DX: I21.19 ST elevation (STEMI) myocardial infarction involving other coronary artery of inferior wall (principal); I50.43 Acute on chronic combined systolic (congestive) and diastolic (congestive) heart failure; T82.855A Stenosis of coronary artery stent, initial encounter; I11.0 Hypertensive heart disease with heart failure; I25.10 Atherosclerotic heart disease of native coronary artery without angina pectoris; F17.200 Nicotine dependence, unspecified, uncomplicated; E11.65 Type 2 diabetes mellitus with hyperglycemia; I48.91 Unspecified atrial fibrillation; M10.9 Gout, unspecified; E89.0 Postprocedural hypothyroidism; D72.829 Elevated white blood cell count, unspecified; G47.00 Insomnia, unspecified; E78.5 Hyperlipidemia, unspecified; R74.0 Nonspecific elevation of levels of transaminase and lactic acid dehydrogenase [LDH]; E66.3 Overweight; Z68.28 Body mass index [BMI] 28.0-28.9, adult; Z71.3 Dietary counseling and surveillance; Z95.5 Presence of coronary angioplasty implant and graft; Z79.84 Long term (current) use of oral hypoglycemic drugs; Z90.49 Acquired absence of other specified parts of digestive tract; Z98.890 Other specified postprocedural states; Z86.010 Personal history of colon polyps; Z82.49 Family history of ischemic heart disease and other diseases of the circulatory system; Z80.52 Family history of malignant neoplasm of bladder
CPT/HCPCS: 36415; 71045; 71046; 80048; 80053; 80061; 82550; 82553; 82565; 83036; 84484; 85025; 85049; 85610; 85730; 93005; 93306; 93458; 96374; 96375; 99291

== ENCOUNTER → 2020-07-03 | Outpatient (CLI) | payer BC ==
--- NOTE | 2020-07-04 07:43 | CT ---
EXAMINATION TYPE: CT abdomen pelvis wo con DATE OF EXAM: 07/03/2020 HISTORY: c/o flank pain for 2 weeks per patient. Abdominal gaseous distention per order. CT DLP: 1018 mGycm. Automated Exposure Control for Dose Reduction was Utilized. TECHNIQUE: CT scan of the abdomen and pelvis is performed with oral but without IV contrast. COMPARISON: NONE FINDINGS: Within the limitations of a non-contrast study, the following observations are made. LUNG BASES: There is coronary artery calcification and suspected distal stent in the RCA distribution . LIVER/GB: No significant abnormality is appreciated. PANCREAS: No significant abnormality is seen. SPLEEN: No significant abnormality is seen. ADRENALS: No significant abnormality is seen. KIDNEYS: From posterior aspect midpole left kidney and there is exophytic heterogeneous slightly hype rdense lesion measuring 2.8 cm craniocaudal dimension sagittal image 41. Hounsfield units average bet ween 15 and 20. Most consider under the 20 attenuation consistent with cystic lesion. I would advise renal protocol contrast-enhanced CT or MRI to definitively evaluate. No renal stones or hydronephrosi s seen bilaterally. BOWEL: The oral contrast reaches level of the cecum. No suspicious small or large bowel dilatation. GENITAL ORGANS: Mildly enlarged prostate gland bulging of bladder base consistent with BPH. Some cent ral calcifications. Adjacent pelvic phlebolith. LYMPH NODES: No greater than 1cm abdominal or pelvic lymph nodes are appreciated. Slightly prominent but subcentimeter lymph nodes throughout the mesentery with mild fat stranding for reference axial im age 55 OSSEOUS STRUCTURES: Limbus vertebra anterior superior L4 vertebra. Multilevel [id number] disc s pace narrowing of slight retrolisthesis L1-L2 through the L3-L4 levels. Posterior spur disc complexes efface the anterior thecal sac at L2-L3 and L3-L4 levels. Slight scoliotic curvature on coronal imag es. Facet arthropathy lower lumbar levels. Symmetric moderate to borderline severe axial joint space loss in both hips. OTHER: Mild/moderate calcified plaque of the abdominal aorta extends into branch vessels. IMPRESSION: 1. Steffi mesentery appearance. Differential includes mesenteric panniculitis, neoplasm such as lympho ma for multiple focal and likely with normal size liver and spleen, idiopathic etiology is in the dif ferential and suspected. Correlate clinically. 2. Exophytic nearly 3.0 cm ball-shaped slightly hyperdense lesion posteriorly midpole level right kid loida, suspect proteinaceous or debris-filled cyst. Advise renal protocol contrast-enhanced CT or MRI f ollow-up to exclude solid or Bosniak type III or IV cystic mass or neoplasm.
== END | disposition home or self-care (01) ==
LOC: RADCTMAIN 16:52
PROVIDERS: ATTEND Family Medicine
DX: N28.9 Disorder of kidney and ureter, unspecified (principal)
CPT/HCPCS: 74176

== ENCOUNTER → 2021-02-05 | Outpatient (CLI) | payer BC ==
--- NOTE | 2021-02-05 13:54 | XR ---
EXAMINATION TYPE: XR chest 2V DATE OF EXAM: 02/05/2021 COMPARISON: 11/04/2019 HISTORY: Cough TECHNIQUE: Frontal and lateral views of the chest are obtained. FINDINGS: Heart size is within normal limits. Atherosclerotic aorta. No pleural effusion, focal cons olidation or pneumothorax. Degenerative changes of the thoracic spine. IMPRESSION: 1. No acute pulmonary disease.
== END | disposition home or self-care (01) ==
LOC: RADXRMAIN 13:36
PROVIDERS: ATTEND Family Medicine
DX: R05 Cough (principal)
CPT/HCPCS: 71046

== ENCOUNTER 2022-06-25 22:00 | Inpatient (IN) | payer BC, MEDICARE ==
--- NOTE | 2022-06-25 23:00 | XR ---
EXAMINATION TYPE: XR abdomen 2V DATE OF EXAM: 06/25/2022 COMPARISON: NONE HISTORY: Abdominal pain TECHNIQUE: Upright and supine views FINDINGS: The bowel gas pattern is normal. No signs of intestinal obstruction or pneumoperitoneum. Fe olinda pattern is normal. No sign of a mass. No pathologic calcification over the kidneys. Lung bases ar e clear. IMPRESSION: Nonacute abdomen.
[2022-06-25 23:27] LABS: Basophils # (A) 0.1 k/uL (0-0.2); Basophils % (A) 0 %; Eosinophils # (A) 0.1 k/uL (0-0.7); Eosinophils % (A) 1 %; HCT 43.6 % (39.0-53.0); HGB 15.7 gm/dL (13.0-17.5); Lymphocytes # (A) 2.2 k/uL (1.0-4.8); Lymphocytes % (A) 13 %; MCH 32.4 pg (25.0-35.0); MCHC 36.1 g/dL (31.0-37.0); MCV 89.6 fL (80.0-100.0); Mean Platelet Volume 8.6; Monocytes % (A) 6 %; Neutrophils # (A) 12.9 k/uL (1.3-7.7); Neutrophils % (A) 78 %; Platelet Count 237 k/uL (150-450); RBC 4.86 m/uL (4.30-5.90); WBC 16.5 k/uL (3.8-10.6)
[2022-06-25] MEDS ORDERED: SODIUM CHLORIDE 0.9% 1,000 ML IV STA (23:29)
[2022-06-25] MEDS ORDERED: PANTOPRAZOLE 40 MG/10 ML VIAL IVP STA (23:29)
[2022-06-25] MEDS ORDERED: MORPHINE SULFATE 4 MG/ML SYRINGE IV STA (23:29)
[2022-06-25] MEDS ORDERED: ONDANSETRON 4 MG/2 ML VIAL IVP STA (23:29)
--- NOTE | 2022-06-25 23:31 | ED ---
Abdominal Pain HPI - General Chief Complaint: Abdominal Pain Stated Complaint: ABD pain/gastro pain Time Seen by Provider: 06/25/22 23:28 Source: patient, RN notes reviewed, old records reviewed Mode of arrival: ambulatory Limitations: no limitations - History of Present Illness Initial Comments: Stated this is a 67-year-old male with sudden onset of severe abdominal pain severe pain to the point of vomiting. Severe pressure sharp stabbing pain with bloating. Active nausea vomiting. Pain is severe persistent here in the ER MD Complaint: abdominal pain -: days(s) Location: diffuse Radiation: epigastric, suprapubic Migration to: no migration, epigastric, suprapubic Severity scale (1-10): 7 Quality: sharp Consistency: constant Improves With: nothing Worsens With: nothing Associated Symptoms: nausea, vomiting Treatments Prior to Arrival: other (0) - Related Data Home Medications Medication Instructions Recorded Confirmed Apixaban [Eliquis] 5 mg PO BID 06/26/22 06/26/22 Atorvastatin [Lipitor] 80 mg PO DAILY 06/26/22 06/26/22 Metoprolol Tartrate [Lopressor] 12.5 mg PO BID 06/26/22 06/26/22 Sildenafil Citrate 50 mg PO DAILY PRN 06/26/22 06/26/22 glipiZIDE [Glucotrol] 5 mg PO DAILY 06/26/22 06/26/22 Previous Rx's Medication Instructions Recorded Nitroglycerin Sl Tabs [Nitrostat] 0.4 mg SUBLINGUAL Q5M PRN #30 tab 11/04/19 lisinopriL [Zestril] 2.5 mg PO DAILY 30 Days #30 tab 11/04/19 metFORMIN HCL [Glucophage] 1,000 mg PO BID #60 tab 11/04/19 Allergies Allergy/AdvReac Type Severity Reaction Status Date / Time No Known Allergies Allergy Verified 06/26/22 10:39 Review of Systems ROS Statement: Those systems with pertinent positive or pertinent negative responses have been documented in the HPI. ROS Other: All systems not noted in ROS Statement are negative. Past Medical History Past Medical History: Atrial Fibrillation, Coronary Artery Disease (CAD), Diabetes Mellitus, Thyroid Disorder Additional Past Medical History / Comment(s): gout, coronary artery disease with prior LAD occlusion at age 37 requiring angioplasty, History of Any Multi-Drug Resistant Organisms: None Reported Past Surgical History: Appendectomy, Heart Catheterization, Heart Catheterization With Stent Additional Past Surgical History / Comment(s): colonoscopy/polyps removed were benign, heart cath/angioplasy(blkg lad). had appy when he was in his 20's then 5 years ago had sx to go in and removed a suture that never dissolved and clean area out. 09/23/16-RT THYROID LOBECTOMY AND PARATHYROID BX Past Anesthesia/Blood Transfusion Reactions: No Reported Reaction Date of Last Stent Placement:: AGE 37 Past Psychological History: No Psychological Hx Reported Smoking Status: Current every day smoker Past Alcohol Use History: None Reported Past Drug Use History: None Reported - Past Family History Father Family Medical History: Myocardial Infarction (MA) Additional Family Medical History / Comment(s): dad at age 55 from [place] Mother Family Medical History: Cancer Additional Family Medical History / Comment(s): from bladder cancer age 88 Sister(s) Family Medical History: No Reported History Brother(s) Family Medical History: No Reported History Daughter(s) Family Medical History: No Reported History Son(s) Family Medical History: No Reported History General Exam Limitations: no limitations General appearance: alert, in no apparent distress, anxious Head exam: Present: atraumatic, normocephalic, normal inspection Eye exam: Present: normal appearance, PERRL, EOMI. Absent: scleral icterus, conjunctival injection, periorbital swelling ENT exam: Present: normal exam, mucous membranes moist Neck exam: Present: normal inspection. Absent: tenderness, meningismus, lymphadenopathy Respiratory exam: Present: normal lung sounds bilaterally. Absent: respiratory distress, wheezes, rales, rhonchi, stridor Cardiovascular Exam: Present: regular rate, normal rhythm, normal heart sounds. Absent: systolic murmur, diastolic murmur, rubs, gallop, clicks GI/Abdominal exam: Present: soft, distended, tenderness, guarding, normal bowel sounds. Absent: rebound, rigid Extremities exam: Present: normal inspection, full ROM, normal capillary refill. Absent: tenderness, pedal edema, joint swelling, calf tenderness Back exam: Present: normal inspection Neurological exam: Present: alert, oriented X3, CN II-XII intact Psychiatric exam: Present: normal affect, normal mood Skin exam: Present: warm, dry, intact, normal color. Absent: rash Course Vital Signs 11/24/22 11/25/22 22:09 02:20 Temperature 97.0 F L 98.3 F Pulse Rate 81 75 Respiratory 25 H 18 Rate Blood Pressure 175/82 154/88 O2 Sat by Pulse 100 98 Oximetry - Reevaluation(s) Reevaluation #1: 06/25/22 Medical record is reviewed Patient improved here in the ER Patient informed results and questions answered Reevaluation #2: 06/25/22 Patient symptoms are improved here in the ER Patient informed results and questions answered - Consultations Consultation #1: Spoke with admitting physicians agreeable with the patient Medical Decision Making - Medical Decision Making This is 67 male with severe abdominal pain. Patient has small bowel obstruction with ileus patient be admitted for nothing by mouth status and symptom management - Lab Data Result diagrams: 06/27/22 06:10 06/27/22 06:09 Lab Results 06/25/22 06/25/22 06/25/22 Range/Units 23:21 23:21 23:21 WBC 16.5 H (3.8-10.6) k/uL RBC 4.86 (4.30-5.90) m/uL Hgb 15.7 (13.0-17.5) gm/dL Hct 43.6 (39.0-53.0) % MCV 89.6 (80.0-100.0) fL MCH 32.4 (25.0-35.0) pg MCHC 36.1 (31.0-37.0) g/dL RDW 12.0 (11.5-15.5) % Plt Count 237 (150-450) k/uL MPV 8.6 Neutrophils % 78 % Lymphocytes % 13 % Monocytes % 6 % Eosinophils % 1 % Basophils % 0 % Neutrophils # 12.9 H (1.3-7.7) k/uL Lymphocytes # 2.2 (1.0-4.8) k/uL Monocytes # 1.0 (0-1.0) k/uL Eosinophils # 0.1 (0-0.7) k/uL Basophils # 0.1 (0-0.2) k/uL PT (9.0-12.0) sec INR (<1.2) APTT 26.9 (22.0-30.0) sec Sodium 135 L (137-145) mmol/L Potassium 5.2 H (3.5-5.1) mmol/L Chloride 100 (98-107) mmol/L Carbon Dioxide 27 (22-30) mmol/L Anion Gap 8 mmol/L BUN 20 (9-20) mg/dL Creatinine 1.14 (0.66-1.25) mg/dL Est GFR (CKD-EPI)AfAm 78 (>60 ml/min/1.73 sqM) Est GFR (CKD-EPI)NonAf 67 (>60 ml/min/1.73 sqM) Glucose 334 H (74-99) mg/dL Calcium 9.1 (8.4-10.2) mg/dL Total Bilirubin 0.4 (0.2-1.3) mg/dL AST 22 (17-59) U/L ALT 19 (4-49) U/L Alkaline Phosphatase 90 (38-126) U/L Troponin I (0.000-0.034) ng/mL Total Protein 6.8 (6.3-8.2) g/dL Albumin 4.5 (3.5-5.0) g/dL Amylase 31 (30-110) U/L Lipase 195 (23-300) U/L 06/25/22 06/25/22 Range/Units 23:21 23:21 WBC (3.8-10.6) k/uL RBC (4.30-5.90) m/uL Hgb (13.0-17.5) gm/dL Hct (39.0-53.0) % MCV (80.0-100.0) fL MCH (25.0-35.0) pg MCHC (31.0-37.0) g/dL RDW (11.5-15.5) % Plt Count (150-450) k/uL MPV Neutrophils % % Lymphocytes % % Monocytes % % Eosinophils % % Basophils % % Neutrophils # (1.3-7.7) k/uL Lymphocytes # (1.0-4.8) k/uL Monocytes # (0-1.0) k/uL Eosinophils # (0-0.7) k/uL Basophils # (0-0.2) k/uL PT 10.7 (9.0-12.0) sec INR 1.0 (<1.2) APTT (22.0-30.0) sec Sodium (137-145) mmol/L Potassium (3.5-5.1) mmol/L Chloride (98-107) mmol/L Carbon Dioxide (22-30) mmol/L Anion Gap mmol/L BUN (9-20) mg/dL Creatinine (0.66-1.25) mg/dL Est GFR (CKD-EPI)AfAm (>60 ml/min/1.73 sqM) Est GFR (CKD-EPI)NonAf (>60 ml/min/1.73 sqM) Glucose (74-99) mg/dL Calcium (8.4-10.2) mg/dL Total Bilirubin (0.2-1.3) mg/dL AST (17-59) U/L ALT (4-49) U/L Alkaline Phosphatase (38-126) U/L Troponin I <0.012 (0.000-0.034) ng/mL Total Protein (6.3-8.2) g/dL Albumin (3.5-5.0) g/dL Amylase (30-110) U/L Lipase (23-300) U/L - EKG Data -: EKG Interpreted by Me (EKG is sinus 73 TX 192 QRS 121 QTC 385) - Radiology Data Radiology results: report reviewed (X-ray chest negative CT abdomen and pelvis positive for ileus and small bowel obstruction), image reviewed Disposition Clinical Impression: Abdominal pain, Small bowel obstruction, Ileus Disposition: ADMITTED IP TO THIS HOSP Condition: Fair Is patient prescribed a controlled substance at d/c from ED?: No Time of Disposition: 01:25
[2022-06-25 23:37] LABS: Albumin 4.5 g/dL (3.5-5.0); Calcium 9.1 mg/dL (8.4-10.2); Potassium 5.2 mmol/L (3.5-5.1); Total Bilirubin 0.4 mg/dL (0.2-1.3); Total Protein 6.8 g/dL (6.3-8.2)
[2022-06-26 01:11] LABS: Prothrombin Time 10.7 sec (9.0-12.0)
--- NOTE | 2022-06-26 01:11 | CT ---
EXAMINATION TYPE: CT abdomen pelvis wo con DATE OF EXAM: 06/26/2022 COMPARISON: 07/03/2020 HISTORY: SSEVERE EPIGASTRIC PAIN SINCE [address] DLP: 756.2 mGycm Automated exposure control for dose reduction was used. Images obtained from the diaphragm to the floor the pelvis with no contrast. Lung bases are clear. No pleural effusion. Heart size is normal. No pericardial effusion. Stomach is intact. Liver and spleen are intact. The bile ducts are not dilated. Gallbladder appears normal. No e vidence of pancreatic mass. There is no adrenal mass. Kidneys have normal size. No hydronephrosis. There is a 1.5 cm complex cyst posterior right kidney. No retroperitoneal adenopathy. Abdominal aorta is atheromatous. Bladder distends smoothly. There are multiple mildly dilated fluid-filled loops of small bowel in the upper abdomen. The distal small tim l not significantly dilated. Small bowel dilated up to 3.8 cm. The bladder distends smoothly. No ingu inal hernia. No free fluid in the pelvis. Large bowel pattern is fairly normal. Terminal ileum appear s normal. Appendix not clearly seen. No sign of thickened appendix. The lumbar vertebrae have normal alignment. No compression fracture. There is multilevel vacuum disc and disc space narrowing in the lumbar spine. Bony pelvis is intact. The hip joints are intact. Sacro iliac joints are intact. IMPRESSION: Dilated proximal small bowel suggestive of ileus or partial mechanical obstruction. Transition point not seen. Appendix not seen. No free air. Dilated small bowel is a change compared to old exam. Stabl e posterior right renal cyst.
[2022-06-26] MEDS ORDERED: ONDANSETRON 4 MG/2 ML VIAL IVP PRN (01:23)
[2022-06-26] MEDS ORDERED: NALOXONE 0.4 MG/ML 1 ML VIAL IV PRN (01:23)
[2022-06-26] MEDS: SODIUM CHLORIDE 0.9% 1,000 ML IV SCH ×3 (03:00→17:16)
[2022-06-26] MEDS: MORPHINE SULFATE 4 MG/ML SYRINGE IV PRN ×2 (03:35→08:46)
[2022-06-26 07:56] LABS: Glucose,Whole Blood 202 mg/dL (70-110)
[2022-06-26] MEDS: PANTOPRAZOLE 40 MG/10 ML VIAL IV SCH (08:35)
[2022-06-26] MEDS ORDERED: DEXTROSE 50% SYRINGE 50 ML IVP PRN ×2 (10:04)
--- NOTE | 2022-06-26 10:11 | P.HPIM ---
History of Present Illness This is a pleasant 67 years old male with past medical history of Atrial Fibrillation, Coronary Artery Disease , Diabetes Mellitus,Hypothyroidism, nicotine dependence. His PCP is Dr. luevano About 1 pack per day with no alcohol or illicit drug, patient is counseled and he agrees to quit and agrees to the nicotine patch Presents because of abdominal pain, epigastric severe, now is better with pain medication down to 2/10, Associated with nausea no vomiting Last bowel movement was 3 days ago but a little gas today. Gen. dyspnea. No urinary complaints. No neurological complaints. Vitals stable Has mild leukocytosis at 16.5 INR, BMP and liver enzymes are unremarkable. Potassium 5.2, sugar 334 and 202. Liver enzymes, troponin and lipase are unremarkable. CT of the abdomen and pelvis with no contrast: Dilated small bowel suggestive of ileus or partial mechanical obstruction. EKG showing normal sinus rhythm at [address]-T changes In the emergency room patient received pain medication, Zofran, Protonix and IV fluids and he was placed nothing by mouth with surgery consult Review of Systems Review of systems CONSTITUTIONAL: No fever, no malaise, no fatigue. HEENT: No recent visual problems or hearing problems. Denied any sore throat. CARDIOVASCULAR: No orthopnea, PND, no palpitations, no syncope. PULMONARY: No shortness of breath, no cough, no hemoptysis. GASTROINTESTINAL: No diarrhea, no vomiting. Normoactive bowel sounds. NEUROLOGICAL: No headaches, no weakness, no numbness. HEMATOLOGICAL: Denies any bleeding or petechiae. GENITOURINARY: Denies any burning micturition, frequency, or urgency. MUSCULOSKELETAL/RHEUMATOLOGICAL: Denies any joint pain, swelling, or any muscle pain. ENDOCRINE: Denies any polyuria or polydipsia. Past Medical History Past Medical History: Atrial Fibrillation, Coronary Artery Disease (CAD), Diabetes Mellitus, Myocardial Infarction ([place]), Thyroid Disorder Additional Past Medical History / Comment(s): gout, coronary artery disease with prior LAD occlusion at age 37 requiring angioplasty, Last Myocardial Infarction Date:: 2019 History of Any Multi-Drug Resistant Organisms: None Reported Past Surgical History: Appendectomy, Heart Catheterization, Heart Cath eterization With Stent Additional Past Surgical History / Comment(s): colonoscopy/polyps removed were benign, heart cath/angioplasy(blkg lad). had appy when he was in his 20's then 5 years ago had sx to go in and removed a suture that never dissolved and clean area out. Last stent in 2019. 09/23/16-RT THYROID LOBECTOMY AND PARATHYROID BX Past Anesthesia/Blood Transfusion Reactions: No Reported Reaction Date of Last Stent Placement:: 2019 Past Psychological History: No Psychological Hx Reported Additional Psychological History / Comment(s): pt lives at home with his , has 2 boys and 2 girls-all grown and off on own. 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 Smoking Status: Current every day smoker Past Alcohol Use History: None Reported Additional Past Alcohol Use History / Comment(s): pt started smoking at age 15, smokes 1 ppd Past Drug Use History: None Reported - Past Family History Father Family Medical History: Myocardial Infarction ([place]) Additional Family Medical History / Comment(s): dad at age 55 from [place] Mother Family Medical History: Cancer Additional Family Medical History / Comment(s): from bladder cancer age 88 Sister(s) Family Medical History: No Reported History Brother(s) Family Medical History: No Reported History Daughter(s) Family Medical History: No Reported History Son(s) Family Medical History: No Reported History Medications and Allergies Home Medications Medication Instructions Recorded Confirmed Type Aspirin 81 mg PO DAILY #30 chew 11/04/19 06/26/22 Rx Atorvastatin [Lipitor] 80 mg PO HS #30 tab 11/04/19 06/26/22 Rx Metoprolol Tartrate [Lopressor] 12.5 mg PO BID 30 Days #60 tab 11/04/19 06/26/22 Rx Nitroglycerin Sl Tabs [Nitrostat] 0.4 mg SUBLINGUAL Q5M PRN #30 tab 11/04/19 06/26/22 Rx Prasugrel [Effient] 10 mg PO DAILY #30 tab 11/04/19 Rx glipiZIDE [Glucotrol] 5 mg PO AC-BRKFST #30 tab 11/04/19 06/26/22 Rx lisinopriL [Zestril] 2.5 mg PO DAILY 30 Days #30 tab 11/04/19 06/26/22 Rx metFORMIN HCL [Glucophage] 1,000 mg PO BID #60 tab 11/04/19 06/26/22 Rx Allergies Allergy/AdvReac Type Severity Reaction Status Date / Time No Known Allergies Allergy Verified 06/25/22 22:11 Physical Exam Vitals: Vital Signs Temp Pulse Pulse Resp BP BP Pulse Ox 06/26/22 05:28 16 06/26/22 05:16 98.0 F 71 16 132/75 97 06/26/22 02:45 98.1 F 97 16 135/68 99 06/26/22 02:20 98.3 F 75 18 154/88 98 06/25/22 22:09 97.0 F L 81 25 H 175/82 100 Intake and Output 06/25/22 06/26/22 06/26/22 22:59 06:59 14:59 Intake Total 590 Balance 590 Intake: Oral 590 Other: Voiding Method Toilet Urinal # Bowel Movements 0 Weight 99.79 kg 99.79 kg GENERAL: The patient is alert and oriented x3, not in any acute distress. Well developed, well nourished. HEENT: Pupils are round and equally reacting to light. EOMI. No scleral icterus. No conjunctival pallor. Normocephalic, atraumatic. No pharyngeal erythema. No thyromegaly. CARDIOVASCULAR: S1 and S2 present. No murmurs, rubs, or gallops. PULMONARY: Chest is clear to auscultation, no wheezing or crackles. -ABDOMEN: Soft, mild epigastric tenderness, no rebound tenderness, no guarding, nondistended, normoactive bowel sounds. No palpable organomegaly. MUSCULOSKELETAL: No joint swelling or deformity. EXTREMITIES: No cyanosis, clubbing, or pedal edema. NEUROLOGICAL: Gross neurological examination did not reveal any focal deficits. SKIN: No rashes. no petechiae. Results CBC & Chem 7: 06/25/22 23:21 06/25/22 23:21 Labs: Abnormal Lab Results - Last 24 Hours (Table) 06/25/22 06/25/22 06/26/22 Range/Units 23:21 23:21 07:55 WBC 16.5 H (3.8-10.6) k/uL Neutrophils # 12.9 H (1.3-7.7) k/uL Sodium 135 L (137-145) mmol/L Potassium 5.2 H (3.5-5.1) mmol/L Glucose 334 H (74-99) mg/dL POC Glucose (mg/dL) 202 H (70-110) mg/dL Thrombosis Risk Factor Assmnt - Choose All That Apply Any of the Below Risk Factors Present?: Yes Each Factor Represents 1 point: Obesity (BMI >25) Other Risk Factors: Yes Each Risk Factor Represents 2 Points: Age 61-74 years Other congenital or acquired thrombophilia - If yes, enter type in comment: No Thrombosis Risk Factor Assessment Total Risk Factor Score: 3 Thrombosis Risk Factor Assessment Level: Moderate Risk Assessment and Plan Assessment: Small bowel obstruction, ileus versus partial mechanical Atrial Fibrillation Coronary Artery Disease, status post PCI Diabetes mellitus Nicotine dependence Plan: Continue with bowel rest Continue with IV fluids Pain management Surgical team consult Monitor glucose with insulin sliding scale Labs and medication were reviewed.. Continue same treatment. Continue with symptomatic treatment. Resume home medication. Monitor labs and vitals. DVT and GI prophylaxis. Further recommendations as per clinical course of the patient DVT prophylaxis: Subcutaneous heparin GI Prophylaxis: Ppi Prognosis is guarded
[2022-06-26 11:13] LABS: Glucose,Whole Blood 160 mg/dL (70-110)
--- NOTE | 2022-06-26 12:42 | P.GSCN ---
History of Present Illness Consult date: 06/26/22 History of present illness: Patient is a 67-year-old man who was in his usual state of health yesterday. After dinner he began having abdominal pain. He developed a lot of nausea but only through small amount. He came in to the emergency department and a CT was done suggestive of ileus or partial bowel obstruction. Today he's feeling much better. He hasn't required any pain medication in 6 hours. He's hungry. He's been passing gas. Denies any previous history of bowel obstructions. He did have an open appendectomy when he was younger. At a time significantly distant from the appendectomy he developed some suture abscesses and required open drainage. Review of Systems All systems: negative Past Medical History Past Medical History: Atrial Fibrillation, Coronary Artery Disease (CAD), Diabetes Mellitus, Myocardial Infarction ([place]), Thyroid Disorder Additional Past Medical History / Comment(s): gout, coronary artery disease with prior LAD occlusion at age 37 requiring angioplasty, Last Myocardial Infarction Date:: 2019 History of Any Multi-Drug Resistant Organisms: None Reported Past Surgical History: Appendectomy, Heart Catheterization, Heart Catheterization With Stent Additional Past Surgical History / Comment(s): colonoscopy/polyps removed were benign, heart cath/angioplasy(blkg lad). had appy when he was in his 20's then 5 years ago had sx to go in and removed a suture that never dissolved and clean area out. Last stent in 2019. 09/23/16-RT THYROID LOBECTOMY AND PARATHYROID BX Past Anesthesia/Blood Transfusion Reactions: No Reported Reaction Date of Last Stent Placement:: 2019 Past Psychological History: No Psychological Hx Reported Additional Psychological History / Comment(s): pt lives at home with his , has 2 boys and 2 girls-all grown and off on own. 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 Smoking Status: Current every day smoker Past Alcohol Use History: None Reported Additional Past Alcohol Use History / Comment(s): pt started smoking at age 15, smokes 1 ppd Past Drug Use History: None Reported - Past Family History Father Family Medical History: Myocardial Infarction ([place]) Additional Family Medical History / Comment(s): dad at age 55 from [place] Mother Family Medical History: Cancer Additional Family Medical History / Comment(s): from bladder cancer age 88 Sister(s) Family Medical History: No Reported History Brother(s) Family Medical History: No Reported History Daughter(s) Family Medical History: No Reported History Son(s) Family Medical History: No Reported History Medications and Allergies Home Medications Medication Instructions Recorded Confirmed Type Nitroglycerin Sl Tabs [Nitrostat] 0.4 mg SUBLINGUAL Q5M PRN #30 tab 11/04/19 06/26/22 Rx lisinopriL [Zestril] 2.5 mg PO DAILY 30 Days #30 tab 11/04/19 06/26/22 Rx metFORMIN HCL [Glucophage] 1,000 mg PO BID #60 tab 11/04/19 06/26/22 Rx Apixaban [Eliquis] 5 mg PO BID 06/26/22 06/26/22 History Atorvastatin [Lipitor] 80 mg PO DAILY 06/26/22 06/26/22 History Metoprolol Tartrate [Lopressor] 12.5 mg PO BID 06/26/22 06/26/22 History Sildenafil Citrate 50 mg PO DAILY PRN 06/26/22 06/26/22 History glipiZIDE [Glucotrol] 5 mg PO DAILY 06/26/22 06/26/22 History Allergies Allergy/AdvReac Type Severity Reaction Status Date / Time No Known Allergies Allergy Verified 06/26/22 10:39 Surgical - Exam Osteopathic Statement: *. No significant issues noted on an osteopathic structural exam other than those noted in the History and Physical/Consult. Vital Signs Temp Pulse Resp BP Pulse Ox 97.0 F L 81 25 H 175/82 100 06/25/22 22:09 06/25/22 22:09 06/25/22 22:09 06/25/22 22:09 06/25/22 22:09 - General well developed, well nourished, no distress - Eyes normal ocular movement - Neck trachea midline - Respiratory normal respiratory effort, clear to auscultation - Cardiovascular Rhythm: regular - Abdomen Abdomen: soft, non tender, bowel sounds, no guarding, no rebound, no distended Results - Labs 06/25/22 23:21 06/25/22 23:21 Abnormal Lab Results - Last 24 Hours (Table) 06/25/22 06/25/22 06/26/22 Range/Units 23:21 23:21 07:55 WBC 16.5 H (3.8-10.6) k/uL Neutrophils # 12.9 H (1.3-7.7) k/uL Sodium 135 L (137-145) mmol/L Potassium 5.2 H (3.5-5.1) mmol/L Glucose 334 H (74-99) mg/dL POC Glucose (mg/dL) 202 H (70-110) mg/dL 06/26/22 Range/Units 11:12 WBC (3.8-10.6) k/uL Neutrophils # (1.3-7.7) k/uL Sodium (137-145) mmol/L Potassium (3.5-5.1) mmol/L Glucose (74-99) mg/dL POC Glucose (mg/dL) 160 H (70-110) mg/dL Diabetes panel 06/25/22 Range/Units 23:21 Sodium 135 L (137-145) mmol/L Potassium 5.2 H (3.5-5.1) mmol/L Chloride 100 (98-107) mmol/L Carbon Dioxide 27 (22-30) mmol/L BUN 20 (9-20) mg/dL Creatinine 1.14 (0.66-1.25) mg/dL Glucose 334 H (74-99) mg/dL Calcium 9.1 (8.4-10.2) mg/dL AST 22 (17-59) U/L ALT 19 (4-49) U/L Alkaline Phosphatase 90 (38-126) U/L Total Protein 6.8 (6.3-8.2) g/dL Albumin 4.5 (3.5-5.0) g/dL Calcium panel 06/25/22 Range/Units 23:21 Calcium 9.1 (8.4-10.2) mg/dL Albumin 4.5 (3.5-5.0) g/dL Pituitary panel 06/25/22 Range/Units 23:21 Sodium 135 L (137-145) mmol/L Potassium 5.2 H (3.5-5.1) mmol/L Chloride 100 (98-107) mmol/L Carbon Dioxide 27 (22-30) mmol/L BUN 20 (9-20) mg/dL Creatinine 1.14 (0.66-1.25) mg/dL Glucose 334 H (74-99) mg/dL Calcium 9.1 (8.4-10.2) mg/dL Adrenal panel 06/25/22 Range/Units 23:21 Sodium 135 L (137-145) mmol/L Potassium 5.2 H (3.5-5.1) mmol/L Chloride 100 (98-107) mmol/L Carbon Dioxide 27 (22-30) mmol/L BUN 20 (9-20) mg/dL Creatinine 1.14 (0.66-1.25) mg/dL Glucose 334 H (74-99) mg/dL Calcium 9.1 (8.4-10.2) mg/dL Total Bilirubin 0.4 (0.2-1.3) mg/dL AST 22 (17-59) U/L ALT 19 (4-49) U/L Alkaline Phosphatase 90 (38-126) U/L Total Protein 6.8 (6.3-8.2) g/dL Albumin 4.5 (3.5-5.0) g/dL - Imaging CT scan - abdomen: report reviewed Assessment and Plan (1) Abdominal pain Current Visit: Yes Status: Acute Code(s): R10.9 - UNSPECIFIED ABDOMINAL PAIN SNOMED Code(s): 88406490 (2) Ileus Current Visit: Yes Status: Acute Code(s): K56.7 - ILEUS, UNSPECIFIED SNOMED Code(s): 523612770 Plan: Patient is clinically much better today. We'll start him on a clear liquid diet and advance that as tolerated. He's able to tolerate a diet this evening he could be discharged in the morning. Questions were encouraged and answered.
[2022-06-26] MEDS: NICOTINE 21MG/24HR PATCH TRANSDERM SCH (12:54)
[2022-06-26] MEDS: INSULIN ASPART (NovoLOG) 100 UNIT/ML VIAL SQ SCH ×3 (12:55→23:05)
[2022-06-26 13:05] LABS: Appearance,Urine Clear (Clear); Bilirubin,Urine Negative (Negative); Blood,Urine Negative (Negative); Color,Urine Yellow; Glucose,Urine (UA) 4+ (Negative); Ketones,Urine Negative (Negative); Leukocyte Esterase,Urine Negative (Negative); Nitrite,Urine Negative (Negative); PH, Urine 6.5 (5.0-8.0); Protein,Urine Negative (Negative); Specific Gravity,Urine 1.021 (1.001-1.035)
[2022-06-26 17:10] LABS: Glucose,Whole Blood 198 mg/dL (70-110)
[2022-06-26 19:53] VITALS: RESP 18
[2022-06-26 20:18] LABS: Glucose,Whole Blood 202 mg/dL (70-110)
[2022-06-26] MEDS: HEPARIN SODIUM,PORCINE/PF 5,000 UNIT/0.5 ML SYRINGE SQ SCH (22:59)
[2022-06-26 23:23] LABS: Glucose,Whole Blood 157 mg/dL (70-110)
[2022-06-27] MEDS: SODIUM CHLORIDE 0.9% 1,000 ML IV SCH ×2 (03:14→08:31)
[2022-06-27 05:56] VITALS: PULSE 67
[2022-06-27 06:52] LABS: Phosphorus 3.6 mg/dL (2.5-4.5)
[2022-06-27 07:05] LABS: Glucose,Whole Blood 187 mg/dL (70-110)
[2022-06-27] MEDS: INSULIN ASPART (NovoLOG) 100 UNIT/ML VIAL SQ SCH ×2 (08:31→12:57)
[2022-06-27] MEDS: PANTOPRAZOLE 40 MG/10 ML VIAL IV SCH (08:37)
[2022-06-27] MEDS: HEPARIN SODIUM,PORCINE/PF 5,000 UNIT/0.5 ML SYRINGE SQ SCH (08:37)
[2022-06-27] MEDS: NICOTINE 21MG/24HR PATCH TRANSDERM SCH (08:37)
[2022-06-27 09:18] LABS: Basophils # (A) 0.04 X 10*3/uL (0.00-0.10); Basophils % (A) 0.5 %; Eosinophils # (A) 0.09 X 10*3/uL (0.04-0.35); Eosinophils % (A) 1.2 %; HCT 38.3 % (39.6-50.0); HGB 13.4 g/dL (13.0-17.0); Immature Grans, Automated 0.3 %; Lymphocytes # (A) 2.19 X 10*3/uL (0.90-5.00); Lymphocytes % (A) 29.8 %; MCH 32.2 pg (27.0-32.0); MCV 92.1 fL (80.0-97.0); Mean Platelet Volume 10.7 fL (9.5-12.2); Monocytes # (A) 0.55 X 10*3/uL (0.20-1.00); Monocytes % (A) 7.5 %; NRBC Per 100 WBC 0 /100 WBCS (0.0-0.0); Neutrophils # (A) 4.47 X 10*3/uL (1.80-7.70); Neutrophils % (A) 60.7 %; Platelet Count 193 X 10*3/uL (140-440); RBC 4.16 X 10*6/uL (4.40-5.60); WBC 7.36 X 10*3/uL (4.50-10.00)
[2022-06-27 11:38] LABS: Glucose,Whole Blood 147 mg/dL (70-110)
[2022-06-27 11:52] VITALS: BP 168/81; TEMP 97.4
[2022-06-27 12:28] LABS: African American GFR (CKD) >90 (>60 ml/min/1.73 sqM); Non-African American GFR(CKD) >90 (>60 ml/min/1.73 sqM); Potassium 4.3 mmol/L (3.5-5.1)
--- NOTE | 2022-06-27 16:07 | P.PN ---
Subjective Progress Note Date: 06/27/22 The patient is seen on rounds. Denies any abdominal pain, nausea or vomiting. Tolerating diet Objective - Vital Signs Vital signs: Vital Signs Temp 97.4 F L 06/27/22 11:33 Pulse 67 06/27/22 11:33 Resp 18 06/27/22 11:33 BP 168/81 06/27/22 11:33 Pulse Ox 97 06/27/22 11:33 FiO2 Intake & Output 06/26/22 06/27/22 06/27/22 18:59 06:59 18:59 Intake Total 400 Output Total 400 Balance -400 400 Intake: Oral 400 Output: Urine 400 Other: Voiding Method Toilet Toilet Urinal # Voids 1 2 # Bowel Movements 0 1 - Constitutional General appearance: Present: cooperative, no acute distress - Gastrointestinal General gastrointestinal: Present: normal bowel sounds. Absent: tenderness - Labs CBC & Chem 7: 06/27/22 06:10 06/27/22 06:09 Labs: Abnormal Lab Results - Last 24 Hours (Table) 06/26/22 06/26/22 06/26/22 Range/Units 17:08 20:15 23:03 RBC (4.40-5.60) X 10*6/uL Hct (39.6-50.0) % MCH (27.0-32.0) pg POC Glucose (mg/dL) 198 H 202 H 157 H (70-110) mg/dL Hemoglobin A1c (0.0-6.0) % 06/27/22 06/27/22 06/27/22 Range/Units 06:10 06:10 07:03 RBC 4.16 L (4.40-5.60) X 10*6/uL Hct 38.3 L (39.6-50.0) % MCH 32.2 H (27.0-32.0) pg POC Glucose (mg/dL) 187 H (70-110) mg/dL Hemoglobin A1c 7.8 H (0.0-6.0) % 06/27/22 Range/Units 11:35 RBC (4.40-5.60) X 10*6/uL Hct (39.6-50.0) % MCH (27.0-32.0) pg POC Glucose (mg/dL) 147 H (70-110) mg/dL Hemoglobin A1c (0.0-6.0) % Assessment and Plan (1) Abdominal pain Status: Acute Code(s): R10.9 - UNSPECIFIED ABDOMINAL PAIN SNOMED Code(s): 03103478 (2) Ileus Status: Acute Code(s): K56.7 - ILEUS, UNSPECIFIED SNOMED Code(s): 419376413 Plan: REsolving ileus. Surgically stable for discharge. Low fiber diet for 1 week then diet at tolerated. If recurrent pain, nausea or vomiting call or return to ED. Questions encouraged and answered
--- NOTE | 2022-06-27 19:53 | P.DS ---
Providers Date of admission: 06/26/22 01:23 Attending physician: Meet Mcneil Consults: 06/26/22 01:23 Consult Physician Routine Consulting Provider: Shellie Delgado Consult Reason/Comments: sbo Do you want consulting provider notified?: Yes Primary care physician: Maximilian Castillo MD Hospital Course: Diagnoses Small bowel obstruction, ileus versus partial mechanical. Completely resolved and cleared by surgery for discharge Atrial Fibrillation Coronary Artery Disease, status post PCI Diabetes mellitus Nicotine dependence stable chronic 1.5 cm complex right renal cyst, patient wears with it and he told me he has it for many years. Hospital course: This is a pleasant 67 years old male with past medical history of Atrial Fibrillation, Coronary Artery Disease , Diabetes Mellitus,Hypothyroidism, nicot ine dependence. Patient presents with abdominal pain found to have small bowel obstruction, he was treated conservatively with bowel rest and medication and IV fluid, his symptoms improved, today he has normal bowel movement, abdominal pain is resolved and abdominal exam looks soft and he tolerates regular diet. Patient was started after the discharge today and he was assisting on that. However patient back to his normal self, he became asymptomatic and patient was cleared for discharge by surgery team Labs reviewed and they are normalized Patient denies any other symptoms, no chest pain or dyspnea, no neurological or new urinary symptoms. Problems and management plan were discussed with the patient and he verbalized understanding and acceptance Patient was found stable and can be discharged home in guarded prognosis however he needs follow-up as an outpatient. Patient was instructed to follow up with PCP Dr. Castillo within one week and patient agrees Patient was instructed to follow up with the surgeon Dr. Delgado in 1-2 weeks and he agrees to call and make appointment as today is weekend Patient states that he has all his home prescription and he does not need new once Physical exam Gen: patient is a AAOx3, no distress CVS: S1-S2, RRR, no murmur Lungs: B/L CTA, no wheezing Abdomen: soft, no distention, no tenderness, positive bowel sounds Extremity: no leg edema or induration Time spent more than 35 minutes Patient Condition at Discharge: Fair Plan - Discharge Summary New Discharge Prescriptions: Continue Nitroglycerin Sl Tabs [Nitrostat] 0.4 mg SUBLINGUAL Q5M PRN #30 tab PRN Reason: Chest Pain lisinopriL [Zestril] 2.5 mg PO DAILY 30 Days #30 tab metFORMIN HCL [Glucophage] 1,000 mg PO BID #60 tab glipiZIDE [Glucotrol] 5 mg PO DAILY Metoprolol Tartrate [Lopressor] 12.5 mg PO BID Apixaban [Eliquis] 5 mg PO BID Atorvastatin [Lipitor] 80 mg PO DAILY No Action Sildenafil Citrate 50 mg PO DAILY PRN PRN Reason: E.D. Discharge Medication List Nitroglycerin Sl Tabs [Nitrostat] 0.4 mg SUBLINGUAL Q5M PRN #30 tab 11/04/19 [Rx] lisinopriL [Zestril] 2.5 mg PO DAILY 30 Days #30 tab 11/04/19 [Rx] metFORMIN HCL [Glucophage] 1,000 mg PO BID #60 tab 11/04/19 [Rx] Apixaban [Eliquis] 5 mg PO BID 06/26/22 [History] Atorvastatin [Lipitor] 80 mg PO DAILY 06/26/22 [History] Metoprolol Tartrate [Lopressor] 12.5 mg PO BID 06/26/22 [History] Sildenafil Citrate 50 mg PO DAILY PRN 06/26/22 [History] glipiZIDE [Glucotrol] 5 mg PO DAILY 06/26/22 [History] Follow up Appointment(s)/Referral(s): Shellie Delgado DO [Doctor of Osteopathic Medicine] - 1 Week (Dr. Delgado is the surgeon who saw you here at the hospital. Office is closed at time of discharge. ) Maximilian Castillo MD [Primary Care Provider] - 1-2 days (Patient to make own follow-up appt. Office closed at time of discharge. ) Vipul Vieyra MD [STAFF PHYSICIAN] - 1 Week (urologist for renal cyst. Patient to make own follow-up appt./office closed at time of discharge. ) Patient Instructions/Handouts: Low Fiber Diet (DC), Ileus (DC), Type 2 Diabetes in the Older Adult (DC) Activity/Diet/Wound Care/Special Instructions: Low fiber/Consistent cabohydrate diet with no carbonation. Discharge Disposition: HOME SELF-CARE
== END 2022-06-27 15:04 | disposition home or self-care (01) | DRG 390 ==
LOC: EC 22:00 → 5NMEDONC 06-26 01:23
PROVIDERS: ADMIT Hospitalist; ATTEND Hospitalist
DX: K56.609 Unspecified intestinal obstruction, unspecified as to partial versus complete obstruction (principal); K56.7 Ileus, unspecified; E03.9 Hypothyroidism, unspecified; E11.9 Type 2 diabetes mellitus without complications; I48.91 Unspecified atrial fibrillation; I25.2 Old myocardial infarction; I25.10 Atherosclerotic heart disease of native coronary artery without angina pectoris; N28.1 Cyst of kidney, acquired; F17.210 Nicotine dependence, cigarettes, uncomplicated; Z71.6 Tobacco abuse counseling; Z79.01 Long term (current) use of anticoagulants; Z79.84 Long term (current) use of oral hypoglycemic drugs; Z79.899 Other long term (current) drug therapy; Z95.5 Presence of coronary angioplasty implant and graft
CPT/HCPCS: 36415; 74019; 74176; 80053; 81003; 82150; 82565; 83036; 83605; 83690; 83735; 84100; 84132; 84484; 85025; 85610; 85730; 93005; 96361; 96374; 96375; 99285

== ENCOUNTER 2022-11-03 07:33 | Day surgery (SDC) | payer MEDICARE ==
[~2022-11-03 07:33] MED LIST changes: -ALPRAZolam 0.25 MG TAB PO PRN; -ASPIRIN 325 MG TAB PO ONE; +LACTATED RINGERS 1,000 ML IV SCH; +LIDOCAINE 1% (10MG/ML) FOR IV START INTRADERMA PRN; -SODIUM CHLORIDE 0.9% 1,000 ML in EMPTY BAG 1 BAG IV ONE
[2022-11-03] MEDS ORDERED: LACTATED RINGERS 1,000 ML IV ONE (07:45)
[2022-11-03 08:02] LABS: Glucose,Whole Blood 157 mg/dL (70-110)
[2022-11-03] MEDS ORDERED: PROPOFOL 10 MG/ML 20 ML VIAL IV ONE (08:09)
[2022-11-03] MEDS ORDERED: LIDOCAINE 2% INJ 20 MG/ML (2 ML VIAL) ONE (08:09)
[2022-11-03 08:12] VITALS: RESP 16; TEMP 97.8
--- NOTE | 2022-11-03 08:15 | P.GSHP ---
History of Present Illness H&P Date: 11/03/22 Chief Complaint: Change in bowel habits 67-year-old male here today for colonoscopy. Last colonoscopy 10 years ago. He says he had a few polyps. Recently with intermittent diarrhea and constipation. Past Medical History Past Medical History: Atrial Fibrillation, Coronary Artery Disease (CAD), Chest Pain / Angina, Diabetes Mellitus, Hyperlipidemia, Hypertension, Thyroid Disorder Additional Past Medical History / Comment(s): gout, coronary artery disease with prior LAD occlusion at age 37 requiring angioplasty, hx polyps Last Myocardial Infarction Date:: 2019 History of Any Multi-Drug Resistant Organisms: None Reported Past Surgical History: Appendectomy, Heart Catheterization, Heart Catheterization With Stent Additional Past Surgical History / Comment(s): colonoscopy/polyps removed were benign, heart cath/angioplasy(blkg lad). had appy when he was in his 20's then 5 years ago had sx to go in and removed a suture that never dissolved and clean area out from appendectomy . 09/23/16-RT THYROID LOBECTOMY AND PARATHYROID BX Past Anesthesia/Blood Transfusion Reactions: No Reported Reaction Date of Last Stent Placement:: 2021 Smoking Status: Current every day smoker - Past Family History Father Family Medical History: Myocardial Infarction (MA) Additional Family Medical History / Comment(s): dad at age 55 from mi Mother Family Medical History: Cancer Additional Family Medical History / Comment(s): from bladder cancer age 88 Sister(s) Family Medical History: No Reported History Brother(s) Family Medical History: No Reported History Daughter(s) Family Medical History: No Reported History Son(s) Family Medical History: No Reported History Medications and Allergies Home Medications Medication Instructions Recorded Confirmed Type Nitroglycerin Sl Tabs [Nitrostat] 0.4 mg SUBLINGUAL Q5M PRN #30 tab 11/04/19 11/03/22 Rx lisinopriL [Zestril] 2.5 mg PO DAILY 30 Days #30 tab 11/04/19 11/03/22 Rx metFORMIN HCL [Glucophage] 1,000 mg PO BID #60 tab 11/04/19 11/03/22 Rx Apixaban [Eliquis] 5 mg PO BID 06/26/22 11/03/22 History Atorvastatin [Lipitor] 80 mg PO HS 06/26/22 11/03/22 History Metoprolol Tartrate [Lopressor] 12.5 mg PO BID 06/26/22 11/03/22 History Sildenafil Citrate 50 mg PO DAILY PRN 06/26/22 11/03/22 History glipiZIDE [Glucotrol] 5 mg PO DAILY 06/26/22 11/03/22 History Dulaglutide [Trulicity] 0.75 mg SQ MURRAY 10/29/22 11/03/22 History Varenicline [Chantix Continuing 1 mg PO BID 10/29/22 11/03/22 History Pack] Allergies Allergy/AdvReac Type Severity Reaction Status Date / Time No Known Allergies Allergy Verified 11/03/22 07:48 Surgical - Exam Vital Signs Temp Pulse Resp BP Pulse Ox 97.8 F 82 16 156/72 99 11/03/22 07:45 11/03/22 07:45 11/03/22 07:45 11/03/22 07:45 11/03/22 07:45 Physical exam: General: Well-developed, well-nourished HEENT: Normocephalic, sclerae nonicteric Abdomen: Nontender, nondistended Extremities: No edema Neuro: Alert and oriented Results - Labs Abnormal Lab Results - Last 24 Hours (Table) 11/03/22 Range/Units 08:00 POC Glucose (mg/dL) 157 H (70-110) mg/dL Assessment and Plan (1) Change in bowel habits Narrative/Plan: Will proceed with colonoscopy at this time. Current Visit: Yes Status: Acute Code(s): R19.4 - CHANGE IN BOWEL HABIT SNOMED Code(s): 18883857
--- NOTE | 2022-11-03 08:21 | P.PCN ---
Date of Procedure: 11/03/22 Procedure(s) Performed: PREOPERATIVE DIAGNOSIS: Change in bowel habits POSTOPERATIVE DIAGNOSIS: Poor prep with solid stool and sigmoid colon PROCEDURE: Colonoscopy to the mid sigmoid colon ANESTHESIA: MAC SURGEON: Dino Dove M.D. SPECIMENS: None ENDOSCOPIC PROCEDURE: The patient was placed on the endoscopy table in the left decubitus position. The Olympus colonoscope was inserted into the anus and passed under direct visualization to the mid sigmoid colon. There was solid stool filling the lumen at this section and I was unable to advance beyond it to evaluate more proximal. This did not appear to be causing obstruction. The visualized rectum appeared normal. Digital rectal examination was normal. The patient was taken to the recovery room in stable condition per anesthesia guidelines. RECOMMENDATIONS: Patient will need additional prep and repeat attempts at colonoscopy
[2022-11-03 08:56] VITALS: BP 149/80; PULSE 66
== END 2022-11-03 09:10 | disposition home or self-care (01) ==
LOC: ORWHC2ENDO 07:33
PROVIDERS: ATTEND Surgery
DX: R19.4 Change in bowel habit (principal); I48.91 Unspecified atrial fibrillation; I25.10 Atherosclerotic heart disease of native coronary artery without angina pectoris; E11.9 Type 2 diabetes mellitus without complications; E78.5 Hyperlipidemia, unspecified; I10 Essential (primary) hypertension; E07.9 Disorder of thyroid, unspecified; I25.2 Old myocardial infarction; Z90.49 Acquired absence of other specified parts of digestive tract; Z95.5 Presence of coronary angioplasty implant and graft; Z82.49 Family history of ischemic heart disease and other diseases of the circulatory system; F17.200 Nicotine dependence, unspecified, uncomplicated; Z79.84 Long term (current) use of oral hypoglycemic drugs; Z79.899 Other long term (current) drug therapy; Z79.01 Long term (current) use of anticoagulants
CPT/HCPCS: 45330; J2704; J2001

== ENCOUNTER → 2023-11-29 | Outpatient (CLI) | payer MEDICARE ==
--- NOTE | 2023-11-29 11:46 | CTL ---
EXAMINATION TYPE: CT Low Dose Lung DATE OF EXAM ORDERED: 11/29/2023 HISTORY: Quit smoking one year. Lung cancer screening CT DLP: [address] CTDI: 2.37 mGy Automated exposure control for dose reduction was used. SCREENING VISIT: Initial COMPARISON: None TECHNIQUE: Low dose computed tomography scan was performed through the chest at 1 mm thick sections a nd reconstructed images in the coronal plane at [address] DIAGNOSTIC QUALITY: Limited, but interpretable FINDINGS: LUNG NODULES: Present, detailed below: 1. There is a 0.6 cm left lower lung field nodule. Series 4 image 237 this appears to be posterior to the major fissure. LUNGS: COPD: Severity: None Fibrosis: Severity: None Lymph nodes: There is a 1.3 cm aortopulmonic window lymph node. Series 3 image 117. Smaller shotty ly mphadenopathy is present within the mediastinum. Other findings: None RIGHT PLEURAL SPACE: Effusion: None Calcification: None Thickening: None Pneumothorax: None LEFT PLEURAL SPACE: Effusion: None Calcification: None Thickening: None Pneumothorax: None HEART: Heart Size: Normal Coronary calcification: Moderate Pericardial effusion: None OTHER FINDINGS: Upper abdomen: Normal Bony thorax: Normal Supraclavicular region: Normal Other: Ascending thoracic aorta at the level the main pulmonary artery measures 4.3 cm. The main pul monary artery at the bifurcation measures 3.4 cm. IMPRESSION: 0.6 cm nodule left lung base. Follow-up CT chest in 6 months is recommended. FOLLOW UP CT CHEST RECOMMENDATION: Follow-up CT chest [address] LUNG RAD: Lung-Rad 3 Probably Benign
== END | disposition home or self-care (01) ==
LOC: RADCTMAIN 09:55
PROVIDERS: ATTEND Family Medicine
DX: Z12.2 Encounter for screening for malignant neoplasm of respiratory organs (principal); R91.1 Solitary pulmonary nodule; Z87.891 Personal history of nicotine dependence
CPT/HCPCS: 71271